=== PATIENT | male | born 1960 | race Caucasian/White ===

== ENCOUNTER 2016-08-16 03:17 | Inpatient (IN) ==
[2016-08-16] MEDS ORDERED: ASPIRIN 325 MG TABLET PO STA (03:39)
[2016-08-16] MEDS ORDERED: ALUM/MAG/SIMETH/LIDO VISC 1:1 30 ML BOTTLE PO STA (03:39)
[2016-08-16] MEDS ORDERED: ONDANSETRON 4 MG/2 ML VIAL IV STA (03:39)
[2016-08-16] MEDS ORDERED: SODIUM CHLORIDE 0.9% 500 ML IV STA (03:39)
[2016-08-16] MEDS ORDERED: METOPROLOL TARTRATE 25 MG TABLET PO STA (03:39)
[2016-08-16] MEDS ORDERED: NITROGLYCERIN 2% OINT 1 INCH/GM PACK TOP STA (03:39)
[2016-08-16 03:48] LABS: Basophils % 0.4 % (0.0-0.8); Eosinophils % 0.1 % (0.00-10.9); Hematocrit 38.7 VOL% (42.0-52.0); Hemoglobin 12.9 GM/DL (14.0-18.0); Immature Granulocytes % 0.5 %; Immature Granulocytes Absolute 0.05 #; Lymphocytes # 0.6 10*3/uL (1.4-4.0); Lymphocytes % 6.3 % (21.2-54.2); Mean Corpuscular HGB Conc 33.3 GM/DL (32-36); Mean Corpuscular Hemoglobin 31 PG (27-34); Mean Corpuscular Volume 93.3 FL (87-102); Mean Platelet Volume 9.9 FL (9.6-12.0); Monocytes # 0.6 10*3/uL (0.11-0.8); Monocytes % 6.4 % (1.7-12.7); Neutrophils # 8.4 10*3/uL (1.4-7.4); Neutrophils % 86.3 % (38.7-73.9); Platelet Count 92 10*3/uL (130-400); Red Blood Count 4.15 10*6/uL (3.8-5.5); Red Cell Distribution Width 16.7 % (9.3-17.3); White Blood Count 9.8 10*3/uL (4.5-13.71)
--- NOTE | 2016-08-16 03:49 | Emergency Department Note ---
I, Jenni Alcazar, am scribing for, and in the presence of, Dale Malloy MD 03:43. IMellissa Charles R, MD, personally performed the services described in this documentation, ascribed by Jenni Alcazar in my presence, and it is both accurate and complete 349 . Arrival - Arrival Chief Complaint: Chest Pain Stated Complaint: CP ED Nursing Triage Note: PT ARRIVES VIA EMS WITH COMPLAINTS OF CHEST PAIN THAT STARTED TONIGHT. PT STATES THAT HE HAS SOB, NAUSEA, DRY MOUTH, DULL PAIN IN THE CENTER OF HIS CHEST, FEELS HOT, AND CANT GET ENOUGH TO DRINK. PT ADMITS TO DRINKING 3 PINTS OF ALCOHOL TONIGHT. PT IS IN NO DISTRESS AT TIME OF TRIAGE. Mode of Arrival: Stretcher Limitations: No Limitations Source: Patient Time Seen by Provider: 08/16/16 03:27 - History of Present Illness HPI Narrative: Pt is a 56 y/o male that was brought to the ED via EMS with c/o chest pain that began hours [employer]. Pt states the chest pain came on during the day yesterday that hurts in the middle of his chest and radiates to his right shoulder. Pt reports he has not had alcohol in 2 days but admitted to triage that he drank 3 pints of alcohol tonight. Pt reports he has [place] and "can't stop shaking." When pt was told if he needed to be admitted he had to be transferred to [place] , [place], pt said that he could not go to [place] because "he would lose his place and he don't have anyone to take care of him." Pt has been seen multiple times by doctor for similar sxs. Pt does have a PMHx of CAD, HTN, alcohol abuse, and CO. No other complaints/pain in ED. Onset (ago): hour(s) Consistency: constant Severity: mild Severity scale (1-10): 2 Allergies/Adverse Reactions: Allergies Allergy/AdvReac Type Severity Reaction Status Date / Time Cephalosporins Allergy Intermediate RASH Verified 08/05/16 16:01 Penicillins Allergy Intermediate RASH Verified 08/05/16 16:01 Home Medications: Home Medications Medication Instructions Recorded Confirmed Type Clorazepate [Tranxene] 7.5 mg PO DAILY 11/16/14 08/16/16 History Metoprolol Succinate 100 mg PO DAILY 11/16/14 08/16/16 History traZODone [Desyrel] 150 mg PO BEDTIME 11/16/14 08/16/16 History Magnesium Chloride [Slow Mag] 64 mg PO BID #60 tablet 08/18/15 08/16/16 Rx Brimonidine Tartrate [Brimonidine 1 drop LEFT EYE TID 03/06/16 08/16/16 History 0.2% Oph Soln] Dorzolamide HCl/Timolol Maleat 1 drop LEFT EYE BID 03/06/16 08/16/16 History [Dorzolamide/Timolol Oph Soln] Aspirin Tab 325 mg PO DAILY 07/13/16 08/16/16 History Benzonatate 200 mg PO TID 07/13/16 08/16/16 History Krill/Om-3/Dha/Epa/Phospho/Ast 1 each PO DAILY 07/13/16 08/16/16 History [[place]-3 Krill Oil 300 mg Sfgl] Omeprazole 40 mg PO DAILY 07/13/16 08/16/16 History Ramipril 20 mg PO DAILY 07/13/16 08/16/16 History Ranitidine Tab [Zantac Tab] 150 mg PO DAILY 07/13/16 08/16/16 History Metoclopramide Tab [Reglan Tab] 5 mg PO ACHS #120 tablet 07/21/16 08/16/16 Rx Ranitidine Tab [Zantac Tab] 150 mg PO BID #60 tablet 07/21/16 08/16/16 Rx Review of System - Review of System 12 point system: reviewed and no additional remarkable complaints except as stated - Review of System Constitutional: Present: other (shaking all over). Absent: fever Respiratory: Absent: cough Cardiovascular: Present: chest pain Gastrointestinal: Absent: abdominal pain, nausea, vomiting Musculoskeletal: Present: other (radiating right shoulder pain from chest pain) Skin: Absent: rash Neurological: Absent: headache, weakness, numbness, confusion Psychiatric: Absent: anxiety Medical,Surgical,& Family Hx - Medical History Cardio: History of: CAD, Hypertension, [place] (STENTS X 3) Psychological: History of: Psychiatric/Substance Abuse Tx (ALCOHOL ABUSE) HEENT: History of: HEENT Problems (Pt states he is legally blind) Endocrine: History of: Dyslipidemia No history of: Diabetes Mellitus (NIDDM) Genitourinary: History of: Kidney Stones Gastrointestinal: History of: GERD - Surgical History Cardiac Surgeries: Sugical HX of: Cardiac Catheterization (STENTS X3) HEENT Surgeries: Surgical HX of: Eye Surgery (trevor eye surg) Orthopedic Surgeries: Surgical HX of;: Orthopedic Surgery (right rotator cuff surg) - Family History Family History: Reports;: Family Cancer (mom), Family Heart Disease, Family Hypertension Denies;: Family Anesthesia Reaction, Family Diabetes, Family Stroke - Social History Smoking Status: Current every day smoker Frequency of Alcohol Use: Frequently Type of Drug Use: None Exam Vital Signs: Vital Signs Temperature 98.9 F 08/16/16 03:22 Pulse Rate 119 H 08/16/16 03:22 Respiratory Rate 20 08/16/16 03:22 Blood Pressure 138/97 08/16/16 03:22 O2 Sat by Pulse Oximetry 96 08/16/16 03:22 - General General appearance: alert, in no apparent distress, other (reeks of alcohol) - Head Head exam: Present: atraumatic, normocephalic - ENT ENT exam: Present: mucous membranes moist. Absent: mucous membranes dry - Neck Neck exam: Present: full ROM. Absent: tenderness - Chest Chest inspection: Present: symmetric chest wall rise. Absent: tenderness - Respiratory Respiratory exam: Present: normal lung sounds bilaterally. Absent: respiratory distress - Cardiovascular Cardiovascular exam: Present: tachycardia, normal heart sounds - Abdominal Exam Abdominal exam: Present: soft. Absent: tenderness - Extremities Exam Extremities exam: Present: full ROM. Absent: tenderness - Back Exam Back exam: Present: full ROM. Absent: tenderness - Neurological Exam Neurological exam: Present: alert, oriented X3, CN II-XII intact. Absent: motor sensory deficit - Psychiatric Psychiatric exam: Present: normal affect, normal mood - Skin Skin exam: Present: warm, dry Course - Consultations Consultation #1: Dr. Avilez will admit patient Time: 04:34 Results - Labs CBC & BMP: 08/16/16 03:33 08/16/16 03:33 Lab Results: I have reviewed the patients labs Labs: Laboratory Tests 08/16/16 03:33 Hgb 12.9 L Hct 38.7 L Plt Count 92 L Neut % (Auto) 86.3 H Lymph % (Auto) 6.3 L Neut # (Auto) 8.4 H Lymph # (Auto) 0.6 L Laboratory Tests 08/16/16 03:33 Magnesium 1.5 L Laboratory Tests 08/16/16 03:33 Chloride 108 H Anion Gap 18.7 H Calcium 7.6 L AST 170 H ALT 104 H Alkaline Phosphatase 169 H Albumin 3.1 L Globulin 3.9 H Albumin/Globulin Ratio 0.7 L Critical Care Time Critical Care Time: Yes Total Critical Care Time: 60 Disposition Clinical Impression: Atypical chest pain, Alcohol dependency, Chest pain, Acute alcohol intoxication , Medical non-compliance, Hypomagnesemia, CAD (coronary artery disease), Hypertension, Left lower lobe pneumonia Case discussed with: patient Disposition: Still a Patient Condition: Stable Time of Disposition: 04:37
[2016-08-16 04:13] LABS: Magnesium 1.5 MG/DL (1.8-2.4)
[2016-08-16 04:18] LABS: Albumin 3.1 G/DL (3.4-5.0); Bilirubin,Total 0.7 MG/DL (0.2-1.0); Calcium 7.6 MG/DL (8.5-10.1); Osmolality,Calculated 285.7 MOS/KG (273-304); Potassium 3.7 MMOL/L (3.5-5.1)
[2016-08-16] MEDS ORDERED: MAGNESIUM SULF RIDER 2 GM in PREMIX 1 EACH IV STA (04:28)
[2016-08-16] MEDS ORDERED: LEVOFLOXACIN INJ 750 MG in PREMIX 1 EACH IV STA (04:30)
[2016-08-16] MEDS ORDERED: ALBUTEROL/IPRATROPIUM 3 ML NEB RESP TX STA (04:33)
[2016-08-16 04:56] LABS: Hypochromasia Slight
[2016-08-16 04:57] LABS: Macrocytosis 1+; Platelet Estimate Decreased
--- NOTE | 2016-08-16 04:57 | Hospitalist History & Physical ---
Assessment and Plan (1) Alcohol dependency Status: Chronic Current Visit: Yes (2) Chest pain Status: Chronic Current Visit: Yes (3) CAD (coronary artery disease) Status: Chronic Current Visit: Yes Qualifiers: Coronary Disease-Associated Artery/Lesion type: [place] artery (4) Hypertension Status: Chronic Current Visit: Yes (5) Dyslipidemia Status: Chronic Current Visit: No (6) Left lower lobe pneumonia Status: Acute Assessment and plan: Plan for this patient #1 admit the patient our service #2 repeat serial enzymes #3 IV antibiotics and breathing treatments #4 continue home meds as appropriate #5 DVT prophylaxis. Current Visit: Yes History of Present Illness Chief complaint: chest pain and shortness of breath History of present illness: Mr. Crowe is a 56 year old male with past medical history significant for coronary artery disease alcoholism hypertension and increased cholesterol who presents to our hospital via EMS with chest pain. Patient reports that it's in the center of his chest and radiates to his right shoulder. At one point he told someone here that he hadn't had alcohol in 3 days. Another person he told that he drank 3 pints of alcohol earlier today. He does report that he is an alcoholic. He says he is shaking a little bit. Patient has been seen in the hospital for multiple complaints of chest pain many times. This time patient feels warm and has a new infiltrate on chest x-ray I was consulted to admit him. Home Medications Medication Instructions Recorded Confirmed Type Clorazepate [Tranxene] 7.5 mg PO DAILY 11/16/14 08/16/16 History Metoprolol Succinate 100 mg PO DAILY 11/16/14 08/16/16 History traZODone [Desyrel] 150 mg PO BEDTIME 11/16/14 08/16/16 History Magnesium Chloride [Slow Mag] 64 mg PO BID #60 tablet 08/18/15 08/16/16 Rx Brimonidine Tartrate [Brimonidine 1 drop LEFT EYE TID 03/06/16 08/16/16 History 0.2% Oph Soln] Dorzolamide HCl/Timolol Maleat 1 drop LEFT EYE BID 03/06/16 08/16/16 History [Dorzolamide/Timolol Oph Soln] Aspirin Tab 325 mg PO DAILY 07/13/16 08/16/16 History Benzonatate 200 mg PO TID 07/13/16 08/16/16 History Krill/Om-3/Dha/Epa/Phospho/Ast 1 each PO DAILY 07/13/16 08/16/16 History [[place]-3 Krill Oil 300 mg Sfgl] Omeprazole 40 mg PO DAILY 07/13/16 08/16/16 History Ramipril 20 mg PO DAILY 07/13/16 08/16/16 History Ranitidine Tab [Zantac Tab] 150 mg PO DAILY 07/13/16 08/16/16 History Metoclopramide Tab [Reglan Tab] 5 mg PO ACHS #120 tablet 07/21/16 08/16/16 Rx Ranitidine Tab [Zantac Tab] 150 mg PO BID #60 tablet 07/21/16 08/16/16 Rx Allergies Allergy/AdvReac Type Severity Reaction Status Date / Time Cephalosporins Allergy Intermediate RASH Verified 08/05/16 16:01 Penicillins Allergy Intermediate RASH Verified 08/05/16 16:01 Medical,Surgical,& Family Hx - Medical History Cardio: History of: CAD, Hypertension, [place] (STENTS X 3) Psychological: History of: Psychiatric/Substance Abuse Tx (ALCOHOL ABUSE) HEENT: History of: HEENT Problems (Pt states he is legally blind) Endocrine: History of: Dyslipidemia No history of: Diabetes Mellitus (NIDDM) Genitourinary: History of: Kidney Stones Gastrointestinal: History of: GERD - Surgical History Cardiac Surgeries: Sugical HX of: Cardiac Catheterization (STENTS X3) HEENT Surgeries: Surgical HX of: Eye Surgery (trevor eye surg) Orthopedic Surgeries: Surgical HX of;: Orthopedic Surgery (right rotator cuff surg) - Family History Family History: Reports;: Family Cancer (mom), Family Heart Disease, Family Hypertension Denies;: Family Anesthesia Reaction, Family Diabetes, Family Stroke - Social History Smoking Status: Current every day smoker Frequency of Alcohol Use: Frequently Type of Drug Use: None 12 point system: reviewed and no additional remarkable complaints except as stated Exam - Constitutional Vitals: Period Temp Pulse Resp BP Sys/Christopher Pulse Ox Last 24 Hr 98.9 F 119 20 138/97 96 - General General appearance: alert, in no apparent distress, other (reeks of alcohol) - Head Head exam: Present: atraumatic, normocephalic - ENT ENT exam: Present: mucous membranes moist. Absent: mucous membranes dry - Neck Neck exam: Present: full ROM. Absent: tenderness - Chest Chest inspection: Present: symmetric chest wall rise. Absent: tenderness - Respiratory Respiratory exam: Present: normal lung sounds bilaterally. Absent: respiratory distress - Cardiovascular Cardiovascular exam: Present: tachycardia, normal heart sounds - Abdominal Exam Abdominal exam: Present: soft. Absent: tenderness - Extremities Exam Extremities exam: Present: full ROM. Absent: tenderness - Back Exam Back exam: Present: full ROM. Absent: tenderness - Neurological Exam Neurological exam: Present: alert, oriented X3, CN II-XII intact. Absent: motor sensory deficit - Psychiatric Psychiatric exam: Present: normal affect, normal mood - Skin Skin exam: Present: warm, dry Results - Labs CBC & BMP: 08/16/16 03:33 08/16/16 03:33
[2016-08-16] MEDS ORDERED: ONDANSETRON 4 MG/2 ML VIAL IV PRN (05:00)
[2016-08-16] MEDS ORDERED: ACETAMINOPHEN 325 MG TABLET PO PRN (05:00)
[2016-08-16] MEDS ORDERED: METOPROLOL TARTRATE 25 MG TABLET ONE (05:07)
[2016-08-16] MEDS ORDERED: LEVOFLOXACIN INJ 150 ML IV ONE (05:07)
[2016-08-16] MEDS ORDERED: ONDANSETRON 4 MG/2 ML VIAL ONE (05:07)
[2016-08-16] MEDS ORDERED: ASPIRIN 325 MG TABLET ONE (05:07)
[2016-08-16] MEDS ORDERED: NITROGLYCERIN 2% OINT 1 INCH/GM PACK TOP ONE (05:07)
[2016-08-16] MEDS ORDERED: ALUM/MAG/SIMETH/LIDO VISC 1:1 30 ML BOTTLE PO ONE (05:08)
[2016-08-16] MEDS ORDERED: MAGNESIUM SULF RIDER 50 ML IV ONE (05:08)
[2016-08-16 05:48] LABS: Apearance,Urine CLEAR (Clear); Bilirubin,Urine Negative (Negative); Blood, Urine Negative (Negative); Glucose,Urine (UA) Negative (Negative); Ketones,Urine 5 mg/dL (Negative); Mucus,Urine Occasional /LPF (Occasional); Nitrite,Urine Negative (Negative); Protein,Urine Negative; RBC,Urine 2 /HPF (0-4); Squamous Epithelial Cell,Urine Occasional /HPF (0-10); Urine Color Yellow (Yellow); Urine Specific Gravity 1.014 (1.001-1.035); Urine Urobilinogen < 2.0 EU/DL (0.2-1.0); WBC,Urine 1 /HPF (0-6)
[2016-08-16 05:57] LABS: Barbiturates Screen,Urine Negative (Negative); Benzodiazepines Screen,Urine Negative (Negative); Cannabinoid Screen,Urine Negative (Negative); Opiate Screen,Urine Negative (Negative); Phencyclidine Screen,Urine Negative (Negative)
--- NOTE | 2016-08-16 06:58 | XRay Report ---
XR chest 1V portable Indication: Chest pain. Chest one view: Comparison 07/28/16. Patchy infiltrate is developed at the left lung base superimposed on diffuse interstitial prominence of the lungs. Heart size and mediastinal contour are within normal limits. Impression: Left basilar pneumonia. PROCEDURE INTERPRETED AT [facility] DEPARTMENT OF RADIOLOGY Final Report Signed by: Dante Mckenna M.D.
[2016-08-16] MEDS: LEVALBUTEROL 1.25 MG/3 ML NEB RESP TX SCH ×3 (08:15→21:11)
--- NOTE | 2016-08-16 08:52 | EKG Report ---
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
[2016-08-16] MEDS ORDERED: CLORAZEPATE 7.5 MG TABLET ONE (09:17)
[2016-08-16] MEDS ORDERED: PANTOPRAZOLE 40 MG TABLET PO ONE (09:17)
[2016-08-16] MEDS ORDERED: FAMOTIDINE 20 MG TABLET ONE (09:17)
[2016-08-16] MEDS ORDERED: MAGNESIUM CHLORIDE 64 MG TABLET PO ONE (09:17)
[2016-08-16] MEDS ORDERED: BENZONATATE 100 MG CAPSULE PO ONE (09:18)
[2016-08-16] MEDS: PANTOPRAZOLE 40 MG TABLET PO SCH (09:21)
[2016-08-16] MEDS: MAGNESIUM CHLORIDE 64 MG TABLET PO SCH ×2 (09:21→21:03)
[2016-08-16] MEDS: CLORAZEPATE 7.5 MG TABLET PO SCH (09:21)
[2016-08-16] MEDS: FAMOTIDINE 20 MG TABLET PO SCH ×2 (09:22→21:04)
[2016-08-16] MEDS: BENZONATATE 100 MG CAPSULE PO SCH ×3 (09:22→21:04)
[2016-08-16] MEDS: METOPROLOL SUCCINATE XL 100 MG TABLET PO SCH (09:23)
[2016-08-16] MEDS: THIAMINE 100 MG TABLET PO SCH (09:23)
[2016-08-16] MEDS: FOLIC ACID 1 MG TABLET PO SCH (09:24)
[2016-08-16] MEDS: METOCLOPRAMIDE 5 MG TABLET PO SCH ×4 (09:24→21:03)
[2016-08-16] MEDS: RAMIPRIL 5 MG CAPSULE PO SCH (09:25)
[2016-08-16] MEDS: MULTIVITAMIN (CENTRUM) TABLET PO SCH (09:25)
[2016-08-16] MEDS: DORZOLAMIDE/TIMOLOL OPH SOLN 10 ML BOTTLE LEFT EYE SCH ×2 (09:26→21:04)
[2016-08-16] MEDS: BRIMONIDINE 0.2% OPH SOLN 5 ML BOTTLE LEFT EYE SCH ×3 (09:26→21:04)
[2016-08-16] MEDS: ASPIRIN 325 MG TABLET PO SCH (09:30)
--- NOTE | 2016-08-16 10:08 | EKG Report ---
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
[2016-08-16 10:59] LABS: Troponin I Only 0.015 NG/ML (0.00-0.045)
--- NOTE | 2016-08-16 18:21 | Hospitalist Progress Note ---
Assessment and Plan - Time spent with patient Time spent with patient: Greater than 30 minutes (1) Left lower lobe pneumonia Status: Acute Assessment and plan: Continue current management. Current Visit: Yes (2) Chest pain Status: Chronic Assessment and plan: Serially negative troponins. Will consult Cardiology. Current Visit: Yes (3) CAD (coronary artery disease) Status: Chronic Current Visit: Yes Qualifiers: Coronary Disease-Associated Artery/Lesion type: [place] artery (4) Hypertension Status: Chronic Assessment and plan: Continue current management. Current Visit: Yes (5) Dyslipidemia Status: Chronic Assessment and plan: Continue current medications. Current Visit: No (6) Alcohol dependency Status: Chronic Assessment and plan: Discontinue vodka, continue ativan. Current Visit: Yes Hospitalist: Subjective Interval history: No complaints, no overnight events. Exam - Constitutional Vitals: Period Temp Pulse Resp BP Sys/Christopher Pulse Ox Last 24 Hr 97.2 F-98.4 F 62-104 16-24 106-148/66-88 94-100 General appearance: no acute distress - Head Head exam: Present: normocephalic, atraumatic - Eye Eye exam: Present: EOMI Pupils: Present: JAIME - ENT ENT exam: Present: normal exam - Neck Neck exam: Present: normal inspection - Respiratory Respiratory exam: Present: clear to auscultation bilaterally. Absent: rhonchi, wheezes - Cardiovascular Cardiovascular exam: Present: regular rate and rhythm. Absent: gallop, rubs, systolic murmur - GI/Abdominal GI/Abdominal exam: Present: normal bowel sounds, soft. Absent: distended, firm , guarding, tenderness, rebound - Extremities Exam Extremities exam: Present: normal inspection. Absent: calf tenderness, edema Results - Labs CBC & BMP: 08/16/16 03:33 08/16/16 03:33 Lab Results: I have reviewed the past 24 hour labs
[2016-08-16] MEDS: LORazepam 2 MG/1 ML VIAL IV PRN (21:06)
[2016-08-17] MEDS: LEVALBUTEROL 1.25 MG/3 ML NEB RESP TX SCH ×4 (01:46→19:46)
[2016-08-17 05:09] LABS: Basophils % 0.5 % (0.0-0.8); Eosinophils # 0.1 10*3/uL (0.0-0.87); Eosinophils % 0.9 % (0.00-10.9); Hematocrit 40.4 VOL% (42.0-52.0); Immature Granulocytes % 0.4 %; Immature Granulocytes Absolute 0.02 #; Lymphocytes # 1.6 10*3/uL (1.4-4.0); Lymphocytes % 28.6 % (21.2-54.2); Mean Corpuscular HGB Conc 32.2 GM/DL (32-36); Mean Corpuscular Hemoglobin 31 PG (27-34); Mean Corpuscular Volume 94.8 FL (87-102); Mean Platelet Volume 10.7 FL (9.6-12.0); Monocytes # 0.5 10*3/uL (0.11-0.8); Monocytes % 9.2 % (1.7-12.7); Neutrophils # 3.4 10*3/uL (1.4-7.4); Neutrophils % 60.4 % (38.7-73.9); Red Blood Count 4.26 10*6/uL (3.8-5.5); Red Cell Distribution Width 16.2 % (9.3-17.3); White Blood Count 5.6 10*3/uL (4.5-13.71)
[2016-08-17 05:34] LABS: Platelet Count 81 10*3/uL (130-400)
[2016-08-17 05:51] LABS: Calcium 8.4 MG/DL (8.5-10.1); Osmolality,Calculated 283.1 MOS/KG (273-304); Potassium 4.1 MMOL/L (3.5-5.1)
[2016-08-17] MEDS: LEVOFLOXACIN INJ 750 MG in PREMIX 1 EACH IV SCH (06:32)
[2016-08-17 06:36] LABS: Platelet Estimate Decreased
[2016-08-17] MEDS: VANCOMYCIN INJ 1,000 MG in SODIUM CHLORIDE 0.9% 250 ML IV SCH ×2 (09:17→21:36)
[2016-08-17] MEDS: MULTIVITAMIN (CENTRUM) TABLET PO SCH (09:20)
[2016-08-17] MEDS: METOCLOPRAMIDE 5 MG TABLET PO SCH ×4 (09:20→21:37)
[2016-08-17] MEDS: FAMOTIDINE 20 MG TABLET PO SCH ×2 (09:20→21:37)
[2016-08-17] MEDS: CLORAZEPATE 7.5 MG TABLET PO SCH (09:20)
[2016-08-17] MEDS: THIAMINE 100 MG TABLET PO SCH (09:20)
[2016-08-17] MEDS: METOPROLOL SUCCINATE XL 100 MG TABLET PO SCH (09:21)
[2016-08-17] MEDS: MAGNESIUM CHLORIDE 64 MG TABLET PO SCH ×2 (09:21→21:37)
[2016-08-17] MEDS: FOLIC ACID 1 MG TABLET PO SCH (09:21)
[2016-08-17] MEDS: BENZONATATE 100 MG CAPSULE PO SCH ×3 (09:21→21:37)
[2016-08-17] MEDS: PANTOPRAZOLE 40 MG TABLET PO SCH (09:21)
[2016-08-17] MEDS: ASPIRIN 325 MG TABLET PO SCH (09:21)
[2016-08-17] MEDS: OMEGA 3 ACID ETHYL ESTERS 1 GM CAPSULE PO SCH (09:22)
[2016-08-17] MEDS: DORZOLAMIDE/TIMOLOL OPH SOLN 10 ML BOTTLE LEFT EYE SCH ×2 (09:23→22:52)
[2016-08-17] MEDS: BRIMONIDINE 0.2% OPH SOLN 5 ML BOTTLE LEFT EYE SCH ×3 (09:24→22:51)
[2016-08-17] MEDS: RAMIPRIL 5 MG CAPSULE PO SCH (09:30)
--- NOTE | 2016-08-17 12:34 | Cardiology Consult Note ---
I, Anita Hoff RN, am scribing for, and in the presence of, Abhi Luu MD 12:31. Assessment and Plan - Time spent with patient Time spent with patient: Greater than 30 minutes (1) CAD (coronary artery disease) Status: Chronic Assessment and plan: The patient tells me he had chest pain, but he told my nurse he did not. He described in fairly good detail but he also describes is different from his pain he had prior to his previous 3 stents. It could be an atypical presentation of coronary disease, GI, or muscle skeletal related. Cardiac isoenzymes were negative. Plan/ recommendation : Agree with treatment of his pneumonia. I will have him take as needed sublingual TNG. I will review his medicines and adjust as needed. From my standpoint, whenever you are ready for him to go home he can go home. He does not need a heart cath at this time and he declines it, too. However, he probably should have a treadmill with Cardiolite, outpatient, at sometime in the future. Our nurse will set that up to be done with Dr. Hardy alvarez I discussed with the patient the benefits of stopping tobacco/nicotine, the problems with continuing to use it, and options of treatment. The patient is considering this option. Thank you for allowing me to participate in this patient's care Current Visit: No Qualifiers: Coronary Disease-Associated Artery/Lesion type: [place] artery (2) Hypomagnesemia Status: Acute Current Visit: Yes (3) Hypertension Status: Chronic Current Visit: Yes (4) Dyslipidemia Status: Chronic Current Visit: No (5) Atypical chest pain Status: Acute Current Visit: Yes (6) Left lower lobe pneumonia Status: Acute Current Visit: Yes (7) Alcohol dependency Status: Chronic Current Visit: Yes History of Present Illness - Data of Consult Patient: known to practice within the last 3 years Consult date: 08/17/16 Requesting Physician: Gertrude Pathak - Consult Narrative Reason for consult: chest pain History of present illness: Mr. Crowe is a 56 year old white male who is followed by Dr. Joy with a history of CAD, HTN, dyslipidemia, alcohol dependency, kidney stones, and GERD. He states he is legally blind. Surgical history includes tonsillectomy, bilateral eye surgeries, right rotator cuff, and lithotriposy. He has had several heart caths, the most recent being 8/21/14 with the following findings: left main coronary artery is widely patent without stenosis. the ramus intermedius is widely patent without stenosis. the circumfles artery is widely patent without stenosis. the left anterior descending artery has a proximal to mid stent that is patent with a 30% or less stenosis. VENKAT 3 flow is present. Right coronary is widely patent without stenosis. Family present includes father with CAD and CVA and mother with cancer. Patient reports he is an everyday smoker and that he binge drinks, saying he has had any alcohol in 2-3 weeks. He reports he came to the hospital for evaluation because he felt bad and had developed a productive cough with green phlegm. He was told he has pneumonia. We are asked to see the patient for chest pain. He denies having any chest pain or shortness of breath while in hospital or before he was admitted. He reports having some right shoulder blade pain at times, but states he always has this and it never coincided with him having blockages. Currently he is pain free. He is in sinus rhythm with heart rates in the 70's. Troponins have been negative x 2. Potassium is 4.1 and BUN and creatinine 17 and 1.0. Magnesium was 1.5 yesterday. He takes 64mg bid as a home med and he was given IV magnesium yesterday. He reports he no longer takes Plavix. 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 He says Dr. Joy told him he could stop it about a year ago, and now he takes Aspirin 325mg dly. CC: Gertrude Pathak MD - Home Medications and Allergies Home Medications: Home Medications Medication Instructions Recorded Confirmed Type Clorazepate [Tranxene] 7.5 mg PO DAILY 11/16/14 08/16/16 History Metoprolol Succinate 100 mg PO DAILY 11/16/14 08/16/16 History traZODone [Desyrel] 150 mg PO BEDTIME 11/16/14 08/16/16 History Magnesium Chloride [Slow Mag] 64 mg PO BID #60 tablet 08/18/15 08/16/16 Rx Brimonidine Tartrate [Brimonidine 1 drop LEFT EYE TID 03/06/16 08/16/16 History 0.2% Oph Soln] Dorzolamide HCl/Timolol Maleat 1 drop LEFT EYE BID 03/06/16 08/16/16 History [Dorzolamide/Timolol Oph Soln] Aspirin Tab 325 mg PO DAILY 07/13/16 08/16/16 History Benzonatate 200 mg PO TID 07/13/16 08/16/16 History Krill/Om-3/Dha/Epa/Phospho/Ast 1 each PO DAILY 07/13/16 08/16/16 History [[place]-3 Krill Oil 300 mg Sfgl] Omeprazole 40 mg PO DAILY 07/13/16 08/16/16 History Ramipril 20 mg PO DAILY 07/13/16 08/16/16 History Ranitidine Tab [Zantac Tab] 150 mg PO DAILY 07/13/16 08/16/16 History Metoclopramide Tab [Reglan Tab] 5 mg PO ACHS #120 tablet 07/21/16 08/16/16 Rx Ranitidine Tab [Zantac Tab] 150 mg PO BID #60 tablet 07/21/16 08/16/16 Rx Allergies/Adverse Reactions: Allergies Allergy/AdvReac Type Severity Reaction Status Date / Time Cephalosporins Allergy Intermediate RASH Verified 08/05/16 16:01 Penicillins Allergy Intermediate RASH Verified 08/05/16 16:01 - Constitutional Constitutional: Present: as per HPI - EENT Eyes: Present: loss of vision (legally blind) Ears: Absent: decreased hearing, ear pain, tinnitus Nose, mouth and throat: Absent: epistaxis, headache(s), neck pain, sore throat - Cardiovascular Cardiovascular: Absent: chest pain at rest, chest pain with activity, diaphoresis, dyspnea, dyspnea on exertion, edema, radiating jaw, neck or arm pain, lightheadedness, palpitations - Respiratory Respiratory: Present: cough (productive with green phlegm). Absent: hemoptysis , dyspnea on exertion - Gastrointestinal Gastrointestinal: Absent: abdominal pain, constipation, diarrhea, hematemesis, hematochezia, nausea, vomiting - Genitourinary Genitourinary: Absent: difficulty urinating, dysuria, flank pain, hematuria - Neurological Neurological: Absent: abnormal gait, abnormal speech, confusion, dizziness, frequent falls, headache(s), syncope - Psychiatric Psychiatric: Absent: anxiety, confusion - Endocrine Endocrine: Present: fatigue. Absent: cold intolerance - Hematologic/Lymphatic Hematologic/Lymphatic: Absent: easy bleeding, easy bruising Medical,Surgical,& Family Hx - Medical History Cardio: History of: CAD, Hypertension, [place] Psychological: History of: Psychiatric/Substance Abuse Tx (ALCOHOL ABUSE) HEENT: History of: HEENT Problems (Pt states he is legally blind) Endocrine: History of: Dyslipidemia Genitourinary: History of: Kidney Stones Gastrointestinal: History of: GERD - Surgical History Cardiac Surgeries: Sugical HX of: Cardiac Catheterization (most recent 02/2014) Thoracic Surgeries: Surgical HX of;: Lithotripsy HEENT Surgeries: Surgical HX of: Eye Surgery (trevor eye surg) Orthopedic Surgeries: Surgical HX of;: Orthopedic Surgery (right rotator cuff surg) - Family History Family History: Reports;: Family Cancer (mother), Family Heart Disease (father) , Family Stroke (father) - Social History Smoking Status: Current every day smoker Have you smoked in the last 12 months: Yes Frequency of Alcohol Use: Frequently Type of Drug Use: None Lives With:: Alone Functional capacity: uses cane/walker Physical Examination Vital Signs Temp Pulse Resp BP Pulse Ox 98.9 F 119 H 20 138/97 96 08/16/16 03:22 08/16/16 03:22 08/16/16 03:22 08/16/16 03:22 08/16/16 03:22 General: Present: Appears Well, No Apparent Distress HEENT: Present: Mucus Membranes Moist Neck: Present: Supple Neck, Midline Trachea, No JVD/HJR Cardiac: Present: Reg Rate and Rhythm Lungs: Present: Normal Breath Sounds. Absent: Oxygen Neuro: Absent: Essential Tremor Abdomen: Present: Soft, Active Bowel Sounds, Non-Tender. Absent: Distended Skin: Present: Other (warts on bottom of both feet, he sees someone at the foot clinic) Musculoskeletal: Present: No Pain, Normal Range of Motion Gait: Present: Normal Gait Extremities: Present: Normal Gait, No Edema, Normal Upper Extr. Pulses. Absent : Normal Lower Extr. Pulses (weak bilaterally) Other: No chest wall tenderness with pressing on, particularly the area where he had the pain Result/EKG - Labs CBC & BMP: 08/17/16 04:36 08/17/16 04:36 Lab Results: I have reviewed the past 24 hour labs Labs: Laboratory Results - last 24 hr 08/16/16 08/16/1617 09:00 13:11 04:36 WBC 5.6 D RBC 4.26 Hgb 13.0 L Hct 40.4 L MCV 94.8 MCH 31 MCHC 32.2 RDW 16.2 Plt Count 81 L MPV 10.7 Neut % (Auto) 60.4 Lymph % (Auto) 28.6 [place] % (Auto) 9.2 Eos % (Auto) 0.9 Baso % (Auto) 0.5 Neut # (Auto) 3.4 Lymph # (Auto) 1.6 [place] # (Auto) 0.5 Eos # (Auto) 0.1 Baso # (Auto) 0.0 Immature Gran % 0.4 Nucleated RBC % 0.0 Immature Gran # 0.02 Nucleated RBCs # 0.00 Platelet Estimate Decreased Anisocytosis Sodium Potassium Chloride Carbon Dioxide Anion Gap BUN Creatinine GFR Calculation BUN/Creatinine Ratio Glucose POC Glucose 84 Calculated Osmolality Calcium Total Creatine Kinase 111 CK-MB (CK-2) 1.1 Troponin I 0.015 08/17/16 04:36 WBC RBC Hgb Hct MCV MCH MCHC RDW Plt Count MPV Neut % (Auto) Lymph % (Auto) [place] % (Auto) Eos % (Auto) Baso % (Auto) Neut # (Auto) Lymph # (Auto) [place] # (Auto) Eos # (Auto) Baso # (Auto) Immature Gran % Nucleated RBC % Immature Gran # Nucleated RBCs # Platelet Estimate Anisocytosis Sodium 142 Potassium 4.1 Chloride 106 Carbon Dioxide 26 Anion Gap 14.1 BUN 17 Creatinine 1.00 GFR Calculation 86 BUN/Creatinine Ratio 17.00 Glucose 81 POC Glucose Calculated Osmolality 283.1 Calcium 8.4 L Total Creatine Kinase CK-MB (CK-2) Troponin I - EKG EKG results: interpreted by me EKG shows: sinus rhythm Quality Measures - VTE Deep Vein Thrombosis/Pulmonary Embolism Present on Admission: No Specialty Discharge - Follow Up or Referrals Follow up with: Myles Joy MD [Physician] - 08/24/16 2:50 pm (go to office on August 23 for stress Test. Do not eat anything after 0700 AM, NO caffiene.) I, Abhi Luu MD, personally performed the services described in this documentation, ascribed by Anita Hoff RN in my presence, and it is both accurate and complete 232 .
--- NOTE | 2016-08-17 15:23 | Hospitalist Progress Note ---
Assessment and Plan (1) Left lower lobe pneumonia Status: Acute Assessment and plan: Continue current management. Current Visit: Yes (2) Chest pain Status: Chronic Assessment and plan: Serially negative troponins. Will consult Cardiology. Current Visit: Yes (3) CAD (coronary artery disease) Status: Chronic Current Visit: No Qualifiers: Coronary Disease-Associated Artery/Lesion type: [place] artery (4) Hypertension Status: Chronic Assessment and plan: Continue current management. Current Visit: Yes (5) Dyslipidemia Status: Chronic Assessment and plan: Continue current medications. Current Visit: No (6) Alcohol dependency Status: Chronic Assessment and plan: Discontinue vodka, continue ativan. Current Visit: Yes Hospitalist: Subjective Interval history: No overnight events. Patient was missing the whole day, and apparently was smoking outside. He complains of a cough. I instructed him to stop smoking. Exam - Constitutional Vitals: Period Temp Pulse Resp BP Sys/Christopher Pulse Ox Last 24 Hr 98.0 F-98.5 F 60-81 18-20 100-116/56-77 91-100 General appearance: no acute distress - Head Head exam: Present: normocephalic, atraumatic - Eye Eye exam: Present: EOMI Pupils: Present: JAIME - ENT ENT exam: Present: normal exam - Neck Neck exam: Present: normal inspection - Respiratory Respiratory exam: Present: clear to auscultation bilaterally. Absent: rhonchi, wheezes - Cardiovascular Cardiovascular exam: Present: regular rate and rhythm. Absent: gallop, rubs, systolic murmur - GI/Abdominal GI/Abdominal exam: Present: normal bowel sounds, soft. Absent: distended, firm , guarding, tenderness, rebound - Extremities Exam Extremities exam: Present: normal inspection. Absent: calf tenderness, edema Results - Labs CBC & BMP: 08/17/16 04:36 08/17/16 04:36 Lab Results: I have reviewed the past 24 hour labs Quality Measures - VTE Deep Vein Thrombosis/Pulmonary Embolism Present on Admission: No Specialty Discharge - Follow Up or Referrals Follow up with: Myles Joy MD [Physician] - 08/24/16 2:50 pm (go to office on August 23 for stress Test. Do not eat anything after 0700 AM, NO caffiene.)
[2016-08-17] MEDS: LORazepam 2 MG/1 ML VIAL IV PRN (17:42)
[2016-08-18] MEDS: LEVALBUTEROL 1.25 MG/3 ML NEB RESP TX SCH ×4 (00:58→18:18)
[2016-08-18] MEDS: LORazepam 2 MG/1 ML VIAL IV PRN ×5 (01:03→18:55)
[2016-08-18] MEDS: METOCLOPRAMIDE 5 MG TABLET PO SCH ×4 (06:31→21:10)
[2016-08-18 06:45] LABS: Basophils % 0.4 % (0.0-0.8); Eosinophils # 0.2 10*3/uL (0.0-0.87); Hematocrit 37.1 VOL% (42.0-52.0); Hemoglobin 12.2 GM/DL (14.0-18.0); Immature Granulocytes % 0.2 %; Immature Granulocytes Absolute 0.02 #; Lymphocytes # 1.7 10*3/uL (1.4-4.0); Mean Corpuscular HGB Conc 32.9 GM/DL (32-36); Mean Corpuscular Hemoglobin 30 PG (27-34); Mean Corpuscular Volume 92.3 FL (87-102); Mean Platelet Volume 11.6 FL (9.6-12.0); Monocytes # 0.7 10*3/uL (0.11-0.8); Monocytes % 8.1 % (1.7-12.7); Neutrophils # 5.5 10*3/uL (1.4-7.4); Neutrophils % 68.3 % (38.7-73.9); Platelet Count 99 10*3/uL (130-400); Red Blood Count 4.02 10*6/uL (3.8-5.5); Red Cell Distribution Width 16.1 % (9.3-17.3)
[2016-08-18 07:13] LABS: Elliptocytes Few; Hypochromasia 1+; Platelet Estimate Decreased
[2016-08-18 07:17] LABS: Calcium 8.4 MG/DL (8.5-10.1); Osmolality,Calculated 287.8 MOS/KG (273-304); Potassium 3.8 MMOL/L (3.5-5.1)
[2016-08-18] MEDS: DORZOLAMIDE/TIMOLOL OPH SOLN 10 ML BOTTLE LEFT EYE SCH ×2 (09:19→21:10)
[2016-08-18] MEDS: BRIMONIDINE 0.2% OPH SOLN 5 ML BOTTLE LEFT EYE SCH ×3 (09:19→21:09)
[2016-08-18] MEDS: METOPROLOL SUCCINATE XL 100 MG TABLET PO SCH (09:20)
[2016-08-18] MEDS: OMEGA 3 ACID ETHYL ESTERS 1 GM CAPSULE PO SCH (09:20)
[2016-08-18] MEDS: THIAMINE 100 MG TABLET PO SCH (09:20)
[2016-08-18] MEDS: BENZONATATE 100 MG CAPSULE PO SCH ×3 (09:20→21:11)
[2016-08-18] MEDS: CLORAZEPATE 7.5 MG TABLET PO SCH (09:20)
[2016-08-18] MEDS: PANTOPRAZOLE 40 MG TABLET PO SCH (09:21)
[2016-08-18] MEDS: FOLIC ACID 1 MG TABLET PO SCH (09:21)
[2016-08-18] MEDS: MULTIVITAMIN (CENTRUM) TABLET PO SCH (09:21)
[2016-08-18] MEDS: ASPIRIN 325 MG TABLET PO SCH (09:21)
[2016-08-18] MEDS: FAMOTIDINE 20 MG TABLET PO SCH ×2 (09:21→21:10)
[2016-08-18] MEDS: MAGNESIUM CHLORIDE 64 MG TABLET PO SCH ×2 (09:21→21:11)
[2016-08-18] MEDS: RAMIPRIL 5 MG CAPSULE PO SCH (09:29)
[2016-08-18] MEDS: VANCOMYCIN INJ 1,000 MG in SODIUM CHLORIDE 0.9% 250 ML IV SCH ×2 (10:35→21:19)
--- NOTE | 2016-08-18 11:07 | Hospitalist Progress Note ---
Assessment and Plan - Time spent with patient Time spent with patient: Greater than 30 minutes (1) Left lower lobe pneumonia Status: Acute Assessment and plan: Continue current management. Current Visit: Yes (2) Chest pain Status: Chronic Assessment and plan: Serially negative troponins. Appreciate cardiology's assistance. Current Visit: Yes (3) CAD (coronary artery disease) Status: Chronic Current Visit: No Qualifiers: Coronary Disease-Associated Artery/Lesion type: [place] artery (4) Hypertension Status: Chronic Assessment and plan: Continue current management. Current Visit: Yes (5) Dyslipidemia Status: Chronic Assessment and plan: Continue current medications. Current Visit: No (6) Alcohol dependency Status: Chronic Assessment and plan: Continue ativan. Current Visit: Yes (7) Positive blood culture Status: Acute Assessment and plan: We'll continue current management await final cultures will obtain a repeat blood culture. Current Visit: Yes Hospitalist: Subjective Interval history: Called down to the Micro lab, it appears he has positive blood cultures for coag negative staph in addition to group B strep. Exam - Constitutional Vitals: Period Temp Pulse Resp BP Sys/Christopher Pulse Ox Last 24 Hr 97.1 F-98.4 F 60-108 18-20 113-127/59-77 91-100 General appearance: no acute distress - Head Head exam: Present: normocephalic, atraumatic - Eye Eye exam: Present: EOMI Pupils: Present: JAIME - ENT ENT exam: Present: normal exam - Neck Neck exam: Present: normal inspection - Respiratory Respiratory exam: Present: clear to auscultation bilaterally. Absent: rhonchi, wheezes - Cardiovascular Cardiovascular exam: Present: regular rate and rhythm. Absent: gallop, rubs, systolic murmur - GI/Abdominal GI/Abdominal exam: Present: normal bowel sounds, soft. Absent: distended, firm , guarding, tenderness, rebound - Extremities Exam Extremities exam: Present: normal inspection. Absent: calf tenderness, edema Results - Labs CBC & BMP: 08/18/16 06:27 08/18/16 06:27 Lab Results: I have reviewed the past 24 hour labs Quality Measures - VTE Deep Vein Thrombosis/Pulmonary Embolism Present on Admission: No Specialty Discharge - Follow Up or Referrals Follow up with: Myles Joy MD [Physician] - 08/24/16 2:50 pm (go to office on August 23 for stress Test. Do not eat anything after 0700 AM, NO caffiene.)
[2016-08-18] MEDS: LEVOFLOXACIN INJ 750 MG in PREMIX 1 EACH IV SCH (12:48)
[2016-08-18] MEDS: NICOTINE 21 MG/24 HR PATCH TRANSDERM SCH (16:15)
[2016-08-19] MEDS: LORazepam 2 MG/1 ML VIAL IV PRN ×7 (00:16→20:58)
[2016-08-19] MEDS: LEVALBUTEROL 1.25 MG/3 ML NEB RESP TX SCH ×4 (01:18→21:15)
[2016-08-19] MEDS: ZIPRASIDONE 20 MG/1 ML VIAL IM PRN ×3 (07:30→18:06)
[2016-08-19] MEDS: BRIMONIDINE 0.2% OPH SOLN 5 ML BOTTLE LEFT EYE SCH ×3 (08:32→21:00)
[2016-08-19] MEDS: MULTIVITAMIN (CENTRUM) TABLET PO SCH (08:32)
[2016-08-19] MEDS: METOCLOPRAMIDE 5 MG TABLET PO SCH ×4 (08:32→20:59)
[2016-08-19] MEDS: DORZOLAMIDE/TIMOLOL OPH SOLN 10 ML BOTTLE LEFT EYE SCH ×2 (08:32→21:00)
[2016-08-19] MEDS: PANTOPRAZOLE 40 MG TABLET PO SCH (08:33)
[2016-08-19] MEDS: BENZONATATE 100 MG CAPSULE PO SCH ×3 (08:33→20:59)
[2016-08-19] MEDS: FAMOTIDINE 20 MG TABLET PO SCH ×2 (08:33→21:00)
[2016-08-19] MEDS: OMEGA 3 ACID ETHYL ESTERS 1 GM CAPSULE PO SCH (08:33)
[2016-08-19] MEDS: THIAMINE 100 MG TABLET PO SCH (08:33)
[2016-08-19] MEDS: FOLIC ACID 1 MG TABLET PO SCH (08:33)
[2016-08-19] MEDS: NICOTINE 21 MG/24 HR PATCH TRANSDERM SCH (08:33)
[2016-08-19] MEDS: MAGNESIUM CHLORIDE 64 MG TABLET PO SCH ×2 (08:33→20:59)
[2016-08-19] MEDS: VANCOMYCIN INJ 1,000 MG in SODIUM CHLORIDE 0.9% 250 ML IV SCH ×2 (08:33→20:59)
[2016-08-19] MEDS: CLORAZEPATE 7.5 MG TABLET PO SCH (08:33)
[2016-08-19] MEDS: RAMIPRIL 5 MG CAPSULE PO SCH (08:57)
[2016-08-19] MEDS: METOPROLOL SUCCINATE XL 100 MG TABLET PO SCH (08:58)
[2016-08-19] MEDS: ASPIRIN 325 MG TABLET PO SCH (08:58)
[2016-08-19] MEDS: LEVOFLOXACIN INJ 750 MG in PREMIX 1 EACH IV SCH (09:19)
[2016-08-19] MEDS ORDERED: hydrALAZINE 20 MG/1 ML VIAL IV PRN (09:20)
--- NOTE | 2016-08-19 12:36 | Hospitalist Progress Note ---
Assessment and Plan - Time spent with patient Time spent with patient: Greater than 30 minutes (1) Acute encephalopathy Status: Acute Assessment and plan: Patient is somewhat disoriented and agitated. He was transferred to the ICU for one on one care. Current Visit: Yes (2) Left lower lobe pneumonia Status: Acute Assessment and plan: Continue current management. Current Visit: Yes (3) Chest pain Status: Chronic Assessment and plan: Serially negative troponins. Appreciate cardiology's assistance. Current Visit: Yes (4) CAD (coronary artery disease) Status: Chronic Assessment and plan: Stable. Current Visit: No Qualifiers: Coronary Disease-Associated Artery/Lesion type: [place] artery (5) Hypertension Status: Chronic Assessment and plan: Continue current management. PRN hydralazine Current Visit: Yes (6) Dyslipidemia Status: Chronic Assessment and plan: Continue current medications. Current Visit: No (7) Alcohol dependency Status: Chronic Assessment and plan: Continue ativan. Current Visit: Yes (8) Positive blood culture Status: Acute Assessment and plan: Streptococcus, continue levquin. Blood cultures repeated. Current Visit: Yes Hospitalist: Subjective Interval history: No complaints currently. He was transferred to the ICU for closer observation due to confusion yesterday and an attempt to leave the hospital AMA. Exam - Constitutional Vitals: Period Temp Pulse Resp BP Sys/Christopher Pulse Ox Last 24 Hr 97.2 F-98 F 53-76 10-26 94-173/56-109 91-100 General appearance: no acute distress - Head Head exam: Present: normocephalic, atraumatic - Eye Eye exam: Present: EOMI Pupils: Present: JAIME - ENT ENT exam: Present: normal exam - Neck Neck exam: Present: normal inspection - Respiratory Respiratory exam: Present: clear to auscultation bilaterally. Absent: rhonchi, wheezes - Cardiovascular Cardiovascular exam: Present: regular rate and rhythm. Absent: gallop, rubs, systolic murmur - GI/Abdominal GI/Abdominal exam: Present: normal bowel sounds, soft. Absent: distended, firm , guarding, tenderness, rebound - Extremities Exam Extremities exam: Present: normal inspection. Absent: calf tenderness, edema Results - Labs CBC & BMP: 08/18/16 06:27 08/18/16 06:27 Lab Results: I have reviewed the past 24 hour labs Quality Measures - VTE Deep Vein Thrombosis/Pulmonary Embolism Present on Admission: No Specialty Discharge - Follow Up or Referrals Follow up with: Myles Joy MD [Physician] - 08/24/16 2:50 pm (go to office on August 23 for stress Test. Do not eat anything after 0700 AM, NO caffiene.)
--- NOTE | 2016-08-19 17:20 | Cardiology Progress Note ---
I, Kimi Villasenor RN, am scribing for, and in the presence of, Abhi Luu MD 17:19. Assessment and Plan - Time spent with patient Time spent with patient: Less than 30 minutes (1) Atypical chest pain Status: Acute Assessment and plan: 08/17/16: The patient tells me he had chest pain, but he told my nurse he did not. He described in fairly good detail but he also describes is different from his pain he had prior to his previous 3 stents. It could be an atypical presentation of coronary disease, GI, or muscle skeletal related. Cardiac isoenzymes were negative. Plan/ recommendation : Agree with treatment of his pneumonia. I will have him take as needed sublingual TNG. I will review his medicines and adjust as needed. From my standpoint, whenever you are ready for him to go home, he can go home. He does not need a heart cath at this time and he declines it, too. However, he probably should have a treadmill with Cardiolite, outpatient, at sometime in the future. Our nurse will set that up to be done with Dr. Hardy alvarez I discussed with the patient the benefits of stopping tobacco/nicotine, the problems with continuing to use it, and options of treatment. The patient is considering this option. Thank you for allowing me to participate in this patient's care 08/18/16-plan/recommendation: No overt angina for now. Positive blood cultures noted. Will check the blood culture identification. On antibiotics. We will check C&S to ensure covered well with current antibiotics. Note: I saw the patient on 08/18/16 and was involved with his care management. However, I am signing the note the following day. Current Visit: Yes (2) Left lower lobe pneumonia Status: Acute Current Visit: Yes (3) Hypomagnesemia Status: Acute Current Visit: Yes (4) Alcohol dependency Status: Chronic Current Visit: Yes (5) Hypertension Status: Chronic Current Visit: Yes (6) Medical non-compliance Status: Chronic Current Visit: Yes Cardiology - PN: Subj Interval history: This AM, patient is up and walking down the halls. No obvious distress noted. Currently the nurses and staff are trying to keep patient from leaving AMA. Frequent trips outside to smoke cigarettes. Unable to obtain complete physical exam due to patient not wanting to return to room. He does have a cough. He does state to the nurses and in speaking with Dr. Pathak, patient apparently only experiences chest pain when he has a cough. He will be cleared for discharge pending final blood culture results. Initial cultures drawn on reveal gram (+) cocci. Labs reviewed, and they are WNL. Telemetry monitoring reveals a NSR with HR in 80's. SBP averaging 120 mmHg, DBP 70 mmHg range. Exam (Progress Note) - Constitutional Vitals: Period Temp Pulse Resp BP Sys/Christopher Pulse Ox Last 24 Hr 97.1 F-98.4 F 60-82 18-20 113-127/59-77 91-100 General appearance: no acute distress, disheveled - Head Head exam: Absent: normocephalic - ENT ENT exam: Present: normal external ear exam - Neck Neck exam: Present: normal inspection - Respiratory Respiratory exam: Present: other (unable to auscaltate; refer to subjective) - Cardiovascular Cardiovascular exam: Present: other (unable to auscultate; refer to subjective) - GI/Abdominal GI/Abdominal exam: Present: other (unable to auscultate; refer to subjective) - Extremities Exam Extremities exam: Present: full ROM - Neurological Exam Neurological exam: Present: alert, oriented X3 - Psychiatric Psychiatric exam: Present: other - Skin Skin exam: Present: normal color Result/EKG - Labs CBC & BMP: 08/18/16 06:27 08/18/16 06:27 Lab Results: I have reviewed the past 24 hour labs Labs: Laboratory Results - last 24 hr 08/18/16 08/18/16 06:27 06:27 WBC 8.0 D RBC 4.02 Hgb 12.2 L Hct 37.1 L MCV 92.3 MCH 30 MCHC 32.9 RDW 16.1 Plt Count 99 L D MPV 11.6 Neut % (Auto) 68.3 Lymph % (Auto) 21.0 L [place] % (Auto) 8.1 Eos % (Auto) 2.0 Baso % (Auto) 0.4 Neut # (Auto) 5.5 Lymph # (Auto) 1.7 [place] # (Auto) 0.7 Eos # (Auto) 0.2 Baso # (Auto) 0.0 Immature Gran % 0.2 Nucleated RBC % 0.0 Immature Gran # 0.02 Nucleated RBCs # 0.00 Platelet Estimate Decreased Hypochromasia 1+ Elliptocytes Few Morphology Comment Sodium 144 Potassium 3.8 Chloride 109 H Carbon Dioxide 24 Anion Gap 14.8 BUN 16 Creatinine 0.90 GFR Calculation 98 BUN/Creatinine Ratio 17.00 Glucose 113 H Calculated Osmolality 287.8 Calcium 8.4 L - EKG EKG results: interpreted by me Quality Measures - VTE Deep Vein Thrombosis/Pulmonary Embolism Present on Admission: No Specialty Discharge - Follow Up or Referrals Follow up with: Myles Joy MD [Physician] - 08/24/16 2:50 pm (go to office on August 23 for stress Test. Do not eat anything after 0700 AM, NO caffiene.) I, Abhi Luu MD, personally performed the services described in this documentation, ascribed by Kimi Villasenor RN in my presence, and it is both accurate and complete 718 .
--- NOTE | 2016-08-19 17:22 | Cardiology Progress Note ---
Assessment and Plan (1) Atypical chest pain Status: Acute Assessment and plan: 08/17/16: The patient tells me he had chest pain, but he told my nurse he did not. He described in fairly good detail but he also describes is different from his pain he had prior to his previous 3 stents. It could be an atypical presentation of coronary disease, GI, or muscle skeletal related. Cardiac isoenzymes were negative. Plan/ recommendation : Agree with treatment of his pneumonia. I will have him take as needed sublingual TNG. I will review his medicines and adjust as needed. From my standpoint, whenever you are ready for him to go home, he can go home. He does not need a heart cath at this time and he declines it, too. However, he probably should have a treadmill with Cardiolite, outpatient, at sometime in the future. Our nurse will set that up to be done with Dr. Hardy alvarez I discussed with the patient the benefits of stopping tobacco/nicotine, the problems with continuing to use it, and options of treatment. The patient is considering this option. Thank you for allowing me to participate in this patient's care 08/18/16-plan/recommendation: No overt angina for now. Positive blood cultures noted. Will check the blood culture identification. On antibiotics. We will check C&S to ensure covered well with current antibiotics. Note: I saw the patient on 08/18/16 and was involved with his care management. However, I am signing the note the following day. 08/19/16-plan/recommendation: No heart failure. No angina. Blood cultures are be repeated. Is on antibiotics. Will check the culture and sensitivity. Current Visit: Yes (2) Left lower lobe pneumonia Status: Acute Current Visit: Yes (3) Hypomagnesemia Status: Acute Current Visit: Yes (4) Alcohol dependency Status: Chronic Current Visit: Yes (5) Hypertension Status: Chronic Current Visit: Yes (6) Medical non-compliance Status: Chronic Current Visit: Yes Cardiology - PN: Subj Interval history: No chest pain or shortness of breath. Exam (Progress Note) - Constitutional Vitals: Period Temp Pulse Resp BP Sys/Christopher Pulse Ox Last 24 Hr 97.2 F-98 F 53-76 10-26 94-173/56-109 91-100 Exam: HEENT: Pupils equal, reactive to light and accommodation Neck: NoJVD or bruit Lungs clear to auscultation Heart: Regular rhythm rate with normal S1 and S2. Apical S4 Abdomen: No hepatosplenomegaly Spine/extremities: No clubbing, cyanosis, or edema Neuro: Nonfocal Psych: No depression or anxiety Result/EKG - Labs CBC & BMP: 08/18/16 06:27 08/18/16 06:27 Lab Results: I have reviewed the past 24 hour labs - EKG EKG results: interpreted by me Quality Measures - VTE Deep Vein Thrombosis/Pulmonary Embolism Present on Admission: No Specialty Discharge - Follow Up or Referrals Follow up with: Myles Joy MD [Physician] - 08/24/16 2:50 pm (go to office on August 23 for stress Test. Do not eat anything after 0700 AM, NO caffiene.)
[2016-08-20] MEDS: LEVALBUTEROL 1.25 MG/3 ML NEB RESP TX SCH ×4 (01:15→21:34)
[2016-08-20] MEDS: LORazepam 2 MG/1 ML VIAL IV PRN ×7 (01:40→21:21)
[2016-08-20 04:34] LABS: Basophils % 0.3 % (0.0-0.8); Eosinophils # 0.2 10*3/uL (0.0-0.87); Eosinophils % 2.8 % (0.00-10.9); Hematocrit 37.4 VOL% (42.0-52.0); Hemoglobin 12.2 GM/DL (14.0-18.0); Immature Granulocytes % 0.4 %; Immature Granulocytes Absolute 0.03 #; Lymphocytes # 1.3 10*3/uL (1.4-4.0); Lymphocytes % 18.6 % (21.2-54.2); Mean Corpuscular HGB Conc 32.6 GM/DL (32-36); Mean Corpuscular Hemoglobin 31 PG (27-34); Mean Corpuscular Volume 93.5 FL (87-102); Mean Platelet Volume 11.6 FL (9.6-12.0); Monocytes # 0.8 10*3/uL (0.11-0.8); Monocytes % 11.8 % (1.7-12.7); Neutrophils # 4.7 10*3/uL (1.4-7.4); Neutrophils % 66.1 % (38.7-73.9); Platelet Count 121 10*3/uL (130-400); Red Cell Distribution Width 16.6 % (9.3-17.3)
[2016-08-20 05:09] LABS: Calcium 8.2 MG/DL (8.5-10.1); Osmolality,Calculated 288.6 MOS/KG (273-304); Potassium 3.8 MMOL/L (3.5-5.1)
[2016-08-20] MEDS: METOCLOPRAMIDE 5 MG TABLET PO SCH ×4 (06:32→21:11)
[2016-08-20] MEDS: ZIPRASIDONE 20 MG/1 ML VIAL IM PRN ×3 (07:00→17:39)
[2016-08-20 07:06] LABS: Band Neutrophils 2 % (0-10); Eosinophils 1 % (0-10); Hypochromasia Slight; Lymphocytes 13 % (20-55); Platelet Estimate Decreased; Segmented Neutrophils 74 % (50-85); Total Cells Counted 100
[2016-08-20] MEDS: DORZOLAMIDE/TIMOLOL OPH SOLN 10 ML BOTTLE LEFT EYE SCH ×2 (09:19→21:12)
[2016-08-20] MEDS: BRIMONIDINE 0.2% OPH SOLN 5 ML BOTTLE LEFT EYE SCH ×3 (09:19→21:12)
[2016-08-20] MEDS: MULTIVITAMIN (CENTRUM) TABLET PO SCH (09:19)
[2016-08-20] MEDS: RAMIPRIL 5 MG CAPSULE PO SCH (09:19)
[2016-08-20] MEDS: ASPIRIN 325 MG TABLET PO SCH (09:19)
[2016-08-20] MEDS: MAGNESIUM CHLORIDE 64 MG TABLET PO SCH ×2 (09:20→21:11)
[2016-08-20] MEDS: NICOTINE 21 MG/24 HR PATCH TRANSDERM SCH (09:20)
[2016-08-20] MEDS: CLORAZEPATE 7.5 MG TABLET PO SCH (09:20)
[2016-08-20] MEDS: FOLIC ACID 1 MG TABLET PO SCH (09:20)
[2016-08-20] MEDS: BENZONATATE 100 MG CAPSULE PO SCH ×3 (09:20→21:11)
[2016-08-20] MEDS: PANTOPRAZOLE 40 MG TABLET PO SCH (09:20)
[2016-08-20] MEDS: FAMOTIDINE 20 MG TABLET PO SCH ×2 (09:20→21:12)
[2016-08-20] MEDS: METOPROLOL SUCCINATE XL 100 MG TABLET PO SCH (09:20)
[2016-08-20] MEDS: OMEGA 3 ACID ETHYL ESTERS 1 GM CAPSULE PO SCH (09:20)
[2016-08-20] MEDS: THIAMINE 100 MG TABLET PO SCH (09:21)
[2016-08-20] MEDS: LEVOFLOXACIN INJ 750 MG in PREMIX 1 EACH IV SCH (09:21)
--- NOTE | 2016-08-20 09:55 | Hospitalist Progress Note ---
Assessment and Plan - Time spent with patient Time spent with patient: Greater than 30 minutes (1) Acute encephalopathy Status: Acute Assessment and plan: Patient is somewhat disoriented and agitated. He was transferred to the ICU for one on one care. Likely due to acute alcohol withdrawal. Consult [place]. Current Visit: Yes (2) Left lower lobe pneumonia Status: Acute Assessment and plan: Continue current management. Repeat CXray. Current Visit: Yes (3) Chest pain Status: Chronic Assessment and plan: Serially negative troponins. Appreciate cardiology's assistance. Current Visit: Yes (4) CAD (coronary artery disease) Status: Chronic Assessment and plan: Stable. Current Visit: No Qualifiers: Coronary Disease-Associated Artery/Lesion type: [place] artery (5) Hypertension Status: Chronic Assessment and plan: Continue current management. PRN hydralazine Current Visit: Yes (6) Dyslipidemia Status: Chronic Assessment and plan: Continue current medications. Current Visit: No (7) Alcohol dependency Status: Chronic Assessment and plan: Continue ativan. Current Visit: Yes (8) Positive blood culture Status: Acute Assessment and plan: Streptococcus, continue levaquin. Blood cultures repeated. Current Visit: Yes Hospitalist: Subjective Interval history: No complaints, no overnight events. Exam - Constitutional Vitals: Period Temp Pulse Resp BP Sys/Christopher Pulse Ox Last 24 Hr 97.4 F-99 F 57-77 10-28 94-166/59-97 94-100 General appearance: no acute distress - Head Head exam: Present: normocephalic, atraumatic - Eye Eye exam: Present: EOMI Pupils: Present: JAIME - ENT ENT exam: Present: normal exam - Neck Neck exam: Present: normal inspection - Respiratory Respiratory exam: Present: clear to auscultation bilaterally. Absent: rhonchi, wheezes - Cardiovascular Cardiovascular exam: Present: regular rate and rhythm. Absent: gallop, rubs, systolic murmur - GI/Abdominal GI/Abdominal exam: Present: normal bowel sounds, soft. Absent: distended, firm , guarding, tenderness, rebound - Extremities Exam Extremities exam: Present: normal inspection. Absent: calf tenderness, edema Results - Labs CBC & BMP: 08/20/16 03:11 08/20/16 03:11 Lab Results: I have reviewed the past 24 hour labs Quality Measures - VTE Deep Vein Thrombosis/Pulmonary Embolism Present on Admission: No Specialty Discharge - Follow Up or Referrals Follow up with: Myles Joy MD [Physician] - 08/24/16 2:50 pm (go to office on August 23 for stress Test. Do not eat anything after 0700 AM, NO caffiene.)
--- NOTE | 2016-08-20 11:16 | XRay Report ---
Exam: XR chest 1V portable Date: 08/20/2016 9:55 AM Indication: Pneumonia Comparison: 08/16/2016 Technical:AP portable Findings: Mild cardiomegaly is present. There is minimal residual infiltrate in the left base with the majority of the consolidation left base now resolved. Small granulomas present in the right base. ASVD is present. External cardiac leads are present. Impression: 1. Resolving left lower lobe pneumonia with only a small amount of residual infiltrate and atelectatic change persisting PROCEDURE INTERPRETED AT [facility] DEPARTMENT OF RADIOLOGY Final Report Signed by: Dr. Miguel Simms
--- NOTE | 2016-08-20 15:36 | Cardiology Progress Note ---
Assessment and Plan (1) Atypical chest pain Status: Acute Assessment and plan: 08/17/16: The patient tells me he had chest pain, but he told my nurse he did not. He described in fairly good detail but he also describes is different from his pain he had prior to his previous 3 stents. It could be an atypical presentation of coronary disease, GI, or muscle skeletal related. Cardiac isoenzymes were negative. Plan/ recommendation : Agree with treatment of his pneumonia. I will have him take as needed sublingual TNG. I will review his medicines and adjust as needed. From my standpoint, whenever you are ready for him to go home, he can go home. He does not need a heart cath at this time and he declines it, too. However, he probably should have a treadmill with Cardiolite, outpatient, at sometime in the future. Our nurse will set that up to be done with Dr. Hardy alvarez I discussed with the patient the benefits of stopping tobacco/nicotine, the problems with continuing to use it, and options of treatment. The patient is considering this option. Thank you for allowing me to participate in this patient's care 08/18/16-plan/recommendation: No overt angina for now. Positive blood cultures noted. Will check the blood culture identification. On antibiotics. We will check C&S to ensure covered well with current antibiotics. Note: I saw the patient on 08/18/16 and was involved with his care management. However, I am signing the note the following day. 08/19/16-plan/recommendation: No heart failure. No angina. Blood cultures are be repeated. Is on antibiotics. Will check the culture and sensitivity. 08/20/16-plan/recommendation: He seems to be working through his alcohol withdrawal. I encouraged him to never drink again so this could not happen again. He is considering this possibility. His blood pressure has been borderline low. I will reduce his Toprol-XL to 50 mg daily and will reduce his ramipril to 2.5 mg p.o. daily. Okay with me to move him out of the ICU when you say so. I do not believe his current vague chest pain is due to his heart. At some point, when he is better, he can have an outpatient stress test with Dr. Hardy alvarez. Current Visit: Yes (2) Left lower lobe pneumonia Status: Acute Current Visit: Yes (3) Hypomagnesemia Status: Acute Current Visit: Yes (4) Alcohol dependency Status: Chronic Current Visit: Yes (5) Hypertension Status: Chronic Current Visit: Yes (6) Medical non-compliance Status: Chronic Current Visit: Yes (7) Hypotension due to medication Status: Acute Current Visit: Yes (8) Alcohol withdrawal Status: Acute Current Visit: Yes Cardiology - PN: Subj Interval history: Some mild vague chest pain. It is present all the time. No increased shortness of breath. He is more alert. Exam (Progress Note) - Constitutional Vitals: Period Temp Pulse Resp BP Sys/Christopher Pulse Ox Last 24 Hr 97.4 F-99 F 60-77 14-28 92-166/57-96 94-100 Exam: HEENT: Pupils equal, reactive to light and accommodation Neck: NoJVD or bruit Lungs clear to auscultation Heart: Regular rhythm rate with normal S1 and S2. Apical S4 Abdomen: No hepatosplenomegaly Spine/extremities: No clubbing, cyanosis, or edema Neuro: Nonfocal, more alert. Psych: No depression or anxiety Result/EKG - Labs CBC & BMP: 08/20/16 03:11 08/20/16 03:11 Lab Results: I have reviewed the past 24 hour labs Labs: Laboratory Results - last 24 hr 08/19/16 08/20/16 08/20/16 21:12 03:11 03:11 WBC 7.0 RBC 4.00 Hgb 12.2 L Hct 37.4 L MCV 93.5 MCH 31 MCHC 32.6 RDW 16.6 Plt Count 121 L D MPV 11.6 Neut % (Auto) 66.1 Lymph % (Auto) 18.6 L [place] % (Auto) 11.8 Eos % (Auto) 2.8 Baso % (Auto) 0.3 Neut # (Auto) 4.7 Lymph # (Auto) 1.3 L [place] # (Auto) 0.8 Eos # (Auto) 0.2 Baso # (Auto) 0.0 Total Counted 100 Immature Gran % 0.4 Nucleated RBC % 0.0 Immature Gran # 0.03 Segmented Neutrophils 74 Band Neutrophils 2 Lymphocytes 13 L Monocytes 10 Eosinophils 1 Nucleated RBCs # 0.00 Platelet Estimate Decreased Hypochromasia Slight Sodium 146 H Potassium 3.8 Chloride 111 H Carbon Dioxide 27 Anion Gap 11.8 BUN 12 Creatinine 0.80 GFR Calculation 102 BUN/Creatinine Ratio 15.00 Glucose 86 Calculated Osmolality 288.6 Calcium 8.2 L Vancomycin Trough 15.4 - Diagnostic Findings Procedure: Chest x-ray: report reviewed by me - EKG EKG results: interpreted by me Quality Measures - VTE Deep Vein Thrombosis/Pulmonary Embolism Present on Admission: No Specialty Discharge - Follow Up or Referrals Follow up with: Myles Joy MD [Physician] - 08/24/16 2:50 pm (go to office on August 23 for stress Test. Do not eat anything after 0700 AM, NO caffiene.)
[2016-08-21] MEDS: LEVALBUTEROL 1.25 MG/3 ML NEB RESP TX SCH ×4 (01:14→19:20)
[2016-08-21] MEDS: LORazepam 2 MG/1 ML VIAL IV PRN ×7 (03:52→21:18)
[2016-08-21 04:45] LABS: Basophils % 0.3 % (0.0-0.8); Eosinophils # 0.2 10*3/uL (0.0-0.87); Eosinophils % 2.2 % (0.00-10.9); Hematocrit 37.9 VOL% (42.0-52.0); Hemoglobin 11.9 GM/DL (14.0-18.0); Immature Granulocytes % 0.3 %; Immature Granulocytes Absolute 0.02 #; Lymphocytes # 1.2 10*3/uL (1.4-4.0); Lymphocytes % 17.7 % (21.2-54.2); Mean Corpuscular HGB Conc 31.4 GM/DL (32-36); Mean Corpuscular Hemoglobin 31 PG (27-34); Mean Corpuscular Volume 98.2 FL (87-102); Mean Platelet Volume 11.6 FL (9.6-12.0); Monocytes % 14.3 % (1.7-12.7); Neutrophils # 4.4 10*3/uL (1.4-7.4); Neutrophils % 65.2 % (38.7-73.9); Platelet Count 128 10*3/uL (130-400); Red Blood Count 3.86 10*6/uL (3.8-5.5); Red Cell Distribution Width 17.2 % (9.3-17.3); White Blood Count 6.8 10*3/uL (4.5-13.71)
[2016-08-21 05:10] LABS: Calcium 7.8 MG/DL (8.5-10.1); Osmolality,Calculated 287.7 MOS/KG (273-304); Potassium 4.1 MMOL/L (3.5-5.1)
[2016-08-21 05:39] LABS: Eosinophils 5 % (0-10); Hypochromasia Slight; Lymphocytes 18 % (20-55); Ovalocytes Slight; Platelet Estimate Normal; Segmented Neutrophils 63 % (50-85); Total Cells Counted 100
[2016-08-21] MEDS: METOCLOPRAMIDE 5 MG TABLET PO SCH ×4 (06:30→21:17)
[2016-08-21] MEDS: NICOTINE 21 MG/24 HR PATCH TRANSDERM SCH (08:17)
[2016-08-21] MEDS: ASPIRIN 325 MG TABLET PO SCH (08:24)
[2016-08-21] MEDS: MAGNESIUM CHLORIDE 64 MG TABLET PO SCH ×2 (08:25→21:18)
[2016-08-21] MEDS: THIAMINE 100 MG TABLET PO SCH (08:25)
[2016-08-21] MEDS: MULTIVITAMIN (CENTRUM) TABLET PO SCH (08:25)
[2016-08-21] MEDS: BENZONATATE 100 MG CAPSULE PO SCH ×3 (08:25→21:17)
[2016-08-21] MEDS: FAMOTIDINE 20 MG TABLET PO SCH ×2 (08:26→21:18)
[2016-08-21] MEDS: FOLIC ACID 1 MG TABLET PO SCH (08:26)
[2016-08-21] MEDS: OMEGA 3 ACID ETHYL ESTERS 1 GM CAPSULE PO SCH (08:26)
[2016-08-21] MEDS: CLORAZEPATE 7.5 MG TABLET PO SCH (08:26)
[2016-08-21] MEDS: BRIMONIDINE 0.2% OPH SOLN 5 ML BOTTLE LEFT EYE SCH ×3 (08:27→21:17)
[2016-08-21] MEDS: DORZOLAMIDE/TIMOLOL OPH SOLN 10 ML BOTTLE LEFT EYE SCH ×2 (08:27→21:17)
[2016-08-21] MEDS ORDERED: METOPROLOL SUCCINATE XL 50 MG TABLET PO SCH (09:00)
[2016-08-21] MEDS: LEVOFLOXACIN INJ 750 MG in PREMIX 1 EACH IV SCH (09:47)
[2016-08-21] MEDS: RAMIPRIL 2.5 MG CAPSULE PO SCH (10:04)
--- NOTE | 2016-08-21 10:16 | Cardiology Progress Note ---
I, Roxann Gil RN, am scribing for, and in the presence of, Elizabeth Meza MD 10:15. Assessment and Plan (1) Atypical chest pain Status: Acute Assessment and plan: Will plan to do stress test in the morning. Current Visit: Yes (2) Left lower lobe pneumonia Status: Acute Current Visit: Yes (3) Alcohol dependency Status: Chronic Current Visit: Yes (4) Hypertension Status: Chronic Current Visit: Yes (5) Medical non-compliance Status: Chronic Current Visit: Yes (6) Alcohol withdrawal Status: Acute Current Visit: Yes Cardiology - PN: Subj Interval history: When I enter the room, the patient is somewhat distressed. He tells me that his blood work was abnormal and he needs a heart catheterization. We discussed his symptoms at length. I reassured him that his blood work was not abnormal. Symptoms are somewhat atypical, and he does drink significant alcohol and takes aspirin daily, and certainly this could be coming from a GI source. Given the fact that he is known to have coronary artery disease, I do believe he needs further risk stratification with stress testing. Reviewing the chart it is unclear how much chest pain he has had over the weekend, but he tells me that he has continued to have intermittent chest pain and is very concerned that he has an underlying cardiac problem. We discussed his symptoms and concerns at length. Patient is doing well this morning. He is currently being evaluated for [facility]. He is eating breakfast now, will plan to do stress test in the morning. If stress test is ok for patient to to discharged to [facility]. He is without complaints this morning. His cardiac biomarkers have been negative. He is currently in sinus rhythm with heart rates in the 70's. Blood pressure continues to be elevated, may be from possible alcohol withdrawal. He cannot undergo stress testing today because he has already had his beta dave and consumed caffeine. He does not want to leave the hospital without the stress test. Exam (Progress Note) - Constitutional Vitals: Period Temp Pulse Resp BP Sys/Christopher Pulse Ox Last 24 Hr 97.4 F-98.9 F 57-76 13-27 92-166/57-109 66-100 General appearance: no acute distress - Head Head exam: Present: normal inspection, normocephalic, atraumatic - Eye Eye exam: Present: EOMI. Absent: conjunctival injection, nystagmus, periorbital swelling, scleral icterus, laceration to eyelids Pupils: Absent: JAIME, dilated, fixed, irregular - ENT ENT exam: Present: normal exam, normal external ear exam - Neck Neck exam: Present: normal inspection. Absent: tenderness, thyromegaly - Respiratory Respiratory exam: Present: clear to auscultation bilaterally. Absent: rales, rhonchi, stridor, wheezes - Cardiovascular Cardiovascular exam: Present: regular rate and rhythm. Absent: gallop, irregular rhythm, systolic murmur, tachycardia - GI/Abdominal GI/Abdominal exam: Present: normal bowel sounds, soft. Absent: tenderness - Extremities Exam Extremities exam: Present: normal inspection. Absent: calf tenderness, edema - Back Exam Back exam: Present: normal inspection. Absent: muscle spasm, vertebral tenderness - Neurological Exam Neurological exam: Present: alert, oriented X3 - Psychiatric Psychiatric exam: Present: normal mood, anxious - Skin Skin exam: Present: normal color, warm, dry Result/EKG - Labs CBC & BMP: 08/21/16 04:12 08/21/16 04:12 Lab Results: I have reviewed the past 24 hour labs Labs: Laboratory Results - last 24 hr 08/21/16 08/21/16 04:12 04:12 WBC 6.8 RBC 3.86 Hgb 11.9 L Hct 37.9 L MCV 98.2 MCH 31 MCHC 31.4 L RDW 17.2 Plt Count 128 L MPV 11.6 Neut % (Auto) 65.2 Lymph % (Auto) 17.7 L [place] % (Auto) 14.3 H Eos % (Auto) 2.2 Baso % (Auto) 0.3 Neut # (Auto) 4.4 Lymph # (Auto) 1.2 L [place] # (Auto) 1.0 H Eos # (Auto) 0.2 Baso # (Auto) 0.0 Total Counted 100 Immature Gran % 0.3 Nucleated RBC % 0.0 Immature Gran # 0.02 Segmented Neutrophils 63 Lymphocytes 18 L Monocytes 14 Eosinophils 5 Nucleated RBCs # 0.00 Platelet Estimate Normal Hypochromasia Slight Ovalocytes Slight Sodium 145 Potassium 4.1 Chloride 113 H Carbon Dioxide 20 L Anion Gap 16.1 H BUN 13 Creatinine 0.70 GFR Calculation 107 BUN/Creatinine Ratio 18.00 Glucose 101 Calculated Osmolality 287.7 Calcium 7.8 L - EKG EKG results: interpreted by me, sinus rhythm Quality Measures - VTE Deep Vein Thrombosis/Pulmonary Embolism Present on Admission: No Specialty Discharge - Follow Up or Referrals Follow up with: Myles Joy MD [Physician] - 08/24/16 2:50 pm (go to office on August 23 for stress Test. Do not eat anything after 0700 AM, NO caffiene.) I, Elizabeth Meza MD, personally performed the services described in this documentation, ascribed by Roxann Gil RN in my presence, and it is both accurate and complete 016 .
--- NOTE | 2016-08-21 10:30 | Hospitalist Progress Note ---
Assessment and Plan - Time spent with patient Time spent with patient: Greater than 30 minutes (1) Acute encephalopathy Status: Acute Assessment and plan: Completely resolved. He refused transfer to [facility]. Current Visit: Yes (2) Left lower lobe pneumonia Status: Acute Assessment and plan: Continue current management. Current Visit: Yes (3) Chest pain Status: Chronic Assessment and plan: Stress test tomorrow. Current Visit: Yes (4) CAD (coronary artery disease) Status: Chronic Assessment and plan: Stable. Current Visit: No Qualifiers: Coronary Disease-Associated Artery/Lesion type: [place] artery (5) Hypertension Status: Chronic Assessment and plan: Continue current management. PRN hydralazine Current Visit: Yes (6) Dyslipidemia Status: Chronic Assessment and plan: Continue current medications. Current Visit: No (7) Alcohol dependency Status: Chronic Assessment and plan: Continue ativan. Current Visit: Yes (8) Positive blood culture Status: Acute Assessment and plan: Streptococcus, continue levaquin. Blood cultures repeated. Current Visit: Yes Hospitalist: Subjective Interval history: No complaints, no overnight events. He has refused [place]. He is alert, and states he is homeless and has no where to go if hes discharged. Exam - Constitutional Vitals: Period Temp Pulse Resp BP Sys/Christopher Pulse Ox Last 24 Hr 97.4 F-98.9 F 57-76 13-27 92-166/57-109 66-100 General appearance: no acute distress - Head Head exam: Present: normocephalic, atraumatic - Eye Eye exam: Present: EOMI Pupils: Present: JAIME - ENT ENT exam: Present: normal exam - Neck Neck exam: Present: normal inspection - Respiratory Respiratory exam: Present: clear to auscultation bilaterally. Absent: rhonchi, wheezes - Cardiovascular Cardiovascular exam: Present: regular rate and rhythm. Absent: gallop, rubs, systolic murmur - GI/Abdominal GI/Abdominal exam: Present: normal bowel sounds, soft. Absent: distended, firm , guarding, tenderness, rebound - Extremities Exam Extremities exam: Present: normal inspection. Absent: calf tenderness, edema Results - Labs CBC & BMP: 08/21/16 04:12 08/21/16 04:12 Lab Results: I have reviewed the past 24 hour labs Quality Measures - VTE Deep Vein Thrombosis/Pulmonary Embolism Present on Admission: No Specialty Discharge - Follow Up or Referrals Follow up with: Myles Joy MD [Physician] - 08/24/16 2:50 pm (go to office on August 23 for stress Test. Do not eat anything after 0700 AM, NO caffiene.)
[2016-08-21] MEDS: RAMIPRIL 5 MG CAPSULE PO SCH (10:59)
[2016-08-22] MEDS: LEVALBUTEROL 1.25 MG/3 ML NEB RESP TX SCH ×3 (00:35→13:47)
[2016-08-22 05:50] LABS: Basophils % 0.5 % (0.0-0.8); Eosinophils # 0.2 10*3/uL (0.0-0.87); Hematocrit 37.2 VOL% (42.0-52.0); Hemoglobin 12.3 GM/DL (14.0-18.0); Immature Granulocytes % 0.4 %; Immature Granulocytes Absolute 0.03 #; Lymphocytes # 2.1 10*3/uL (1.4-4.0); Lymphocytes % 26.3 % (21.2-54.2); Mean Corpuscular HGB Conc 33.1 GM/DL (32-36); Mean Corpuscular Hemoglobin 32 PG (27-34); Mean Corpuscular Volume 95.9 FL (87-102); Mean Platelet Volume 10.3 FL (9.6-12.0); Monocytes # 1.2 10*3/uL (0.11-0.8); Monocytes % 14.6 % (1.7-12.7); Neutrophils # 4.3 10*3/uL (1.4-7.4); Neutrophils % 55.2 % (38.7-73.9); Platelet Count 182 10*3/uL (130-400); Red Blood Count 3.88 10*6/uL (3.8-5.5); Red Cell Distribution Width 17.2 % (9.3-17.3); White Blood Count 7.9 10*3/uL (4.5-13.71)
[2016-08-22 06:23] LABS: Calcium 8.4 MG/DL (8.5-10.1); Osmolality,Calculated 288.6 MOS/KG (273-304); Potassium 3.8 MMOL/L (3.5-5.1)
[2016-08-22] MEDS: NICOTINE 21 MG/24 HR PATCH TRANSDERM SCH (08:10)
[2016-08-22] MEDS: DORZOLAMIDE/TIMOLOL OPH SOLN 10 ML BOTTLE LEFT EYE SCH (08:10)
[2016-08-22] MEDS: BRIMONIDINE 0.2% OPH SOLN 5 ML BOTTLE LEFT EYE SCH ×2 (08:11→14:07)
[2016-08-22] MEDS ORDERED: REGADENOSON 0.4 MG/5 ML SYRINGE IV ONE (09:55)
[2016-08-22] MEDS: RAMIPRIL 2.5 MG CAPSULE PO SCH (10:46)
[2016-08-22] MEDS: BENZONATATE 100 MG CAPSULE PO SCH ×2 (10:47→14:07)
[2016-08-22] MEDS: RAMIPRIL 5 MG CAPSULE PO SCH (10:47)
[2016-08-22] MEDS: MAGNESIUM CHLORIDE 64 MG TABLET PO SCH (10:48)
[2016-08-22] MEDS: THIAMINE 100 MG TABLET PO SCH (10:48)
[2016-08-22] MEDS: OMEGA 3 ACID ETHYL ESTERS 1 GM CAPSULE PO SCH (10:48)
[2016-08-22] MEDS: ASPIRIN 325 MG TABLET PO SCH (10:48)
[2016-08-22] MEDS: MULTIVITAMIN (CENTRUM) TABLET PO SCH (10:48)
[2016-08-22] MEDS: METOCLOPRAMIDE 5 MG TABLET PO SCH ×4 (10:48→16:19)
[2016-08-22] MEDS: CLORAZEPATE 7.5 MG TABLET PO SCH (10:49)
[2016-08-22] MEDS: LEVOFLOXACIN INJ 750 MG in PREMIX 1 EACH IV SCH (10:49)
[2016-08-22] MEDS: FOLIC ACID 1 MG TABLET PO SCH (10:49)
[2016-08-22] MEDS: FAMOTIDINE 20 MG TABLET PO SCH (10:49)
[2016-08-22] MEDS: LORazepam 2 MG/1 ML VIAL IV PRN ×2 (10:57→15:25)
--- NOTE | 2016-08-22 13:12 | Discharge Summary ---
Hospital Course - Hospital Course Hospital Course: Mr Crowe presented with chest pain. Serial troponins were negative. Cardiology was consulted. Blood pressure medications were adjusted. He had a stress test which was reviewed by the fundraising consultant Dr Stokes and cleared for discharge with follow up. He will follow up with Dr Joy on 08/24/16. Pneumonia: CXray on admission revealed a left lower lobe infiltrate concerning for pneumonia. He was initiated on Levaquin. Had no elevation of temperature or WBC during his hospital stay. Delerium tremens: During his hospital stay he developed delerium that was felt to be due to DT. He was managed with ativan IV and even required a brief stay in the ICU for a 72 hour hold as he threatened to leave. This resolved. He was evaluated by [place] and refused admission. Bacteremia: Blood cultures returned positive for strep salivarius and staph capitis. Sensitive to Levaquin. Repeat blood cultures were negative. He will continue Levaquin for a total of 14 days after negative blood culture. - Time spent with patient Time with patient DS: Greater than 30 minutes Diagnosis - Discharge Diagnosis (1) Acute encephalopathy Status: Acute (2) Left lower lobe pneumonia Status: Acute (3) Chest pain Status: Chronic (4) CAD (coronary artery disease) Status: Chronic (5) Hypertension Status: Chronic (6) Dyslipidemia Status: Chronic (7) Alcohol dependency Status: Chronic (8) Positive blood culture Status: Acute Specialty Discharge - Follow Up or Referrals Follow up with: Myles Joy MD [Physician] - 08/24/16 2:50 pm (go to office on August 23 for stress Test. Do not eat anything after 0700 AM, NO caffiene.) Discharge Plan - Discharge Data Disposition: Disch To Home/Self Care Condition at Discharge: Stable Discharge Diet: advance to your usual diet Activity: resume usual activities as tolerated - Discharge Medications New Metoprolol Succinate Xl [Toprol Xl] 50 mg PO DAILY #30 tablet Levofloxacin Tab [Levaquin Tab] 750 mg PO DAILY #10 tablet Nicotine 21 mg/24 Hr Patch [Nicoderm CQ 21 mg/24 hr Patch] 1 patch TRANSDERM DAILY #30 patch Ramipril [Altace] 2.5 mg PO DAILY #30 capsule Discontinued Metoprolol Succinate 100 mg PO DAILY Ramipril 20 mg PO DAILY Ranitidine Tab [Zantac Tab] 150 mg PO DAILY No Action traZODone [Desyrel] 150 mg PO BEDTIME Clorazepate [Tranxene] 7.5 mg PO DAILY Magnesium Chloride [Slow Mag] 64 mg PO BID #60 tablet Brimonidine Tartrate [Brimonidine 0.2% Oph Soln] 1 drop LEFT EYE TID Dorzolamide HCl/Timolol Maleat [Dorzolamide/Timolol Oph Soln] 1 drop LEFT EYE BID Omeprazole 40 mg PO DAILY Aspirin Tab 325 mg PO DAILY Benzonatate 200 mg PO TID Krill/Om-3/Dha/Epa/Phospho/Ast [[place]-3 Krill Oil 300 mg Sfgl] 1 each PO DAILY Metoclopramide Tab [Reglan Tab] 5 mg PO ACHS #120 tablet Ranitidine Tab [Zantac Tab] 150 mg PO BID #60 tablet - Follow Up or Referral Follow Up: Myles Joy MD [Physician] - 08/24/16 2:50 pm (go to office on August 23 for stress Test. Do not eat anything after 0700 AM, NO caffiene.) - Forms/Instructions Instructions: How to Stop Smoking (DC), Alcohol Intoxication (DC) Exam - Constitutional Vitals: Period Temp Pulse Resp BP Sys/Christopher Pulse Ox Last 24 Hr 97.2 F-98.9 F 52-70 16-20 113-152/57-89 95-100 General appearance: normal weight, no acute distress - Head Head exam: Present: normal inspection - Eye Eye exam: Present: EOMI Pupils: Present: JAIME - ENT ENT exam: Present: normal exam - Neck Neck exam: Present: normal inspection - Respiratory Respiratory exam: Present: clear to auscultation bilaterally - Cardiovascular Cardiovascular exam: Present: regular rate and rhythm - GI/Abdominal GI/Abdominal exam: Present: normal bowel sounds - Extremities Exam Extremities exam: Present: normal inspection Discharge Results Procedures and tests throughout hospitalization: Pending Orders 08/18/16 11:36 Blood Culture Stat 08/22/16 04:00 NM rosi perf SPECT rest or str IN AM Labs on day of discharge: Labs from last 24 hours 08/22/16 08/22/16 05:17 05:17 WBC 7.9 RBC 3.88 Hgb 12.3 L Hct 37.2 L MCV 95.9 MCH 32 MCHC 33.1 RDW 17.2 Plt Count 182 D MPV 10.3 Neut % (Auto) 55.2 Lymph % (Auto) 26.3 [place] % (Auto) 14.6 H Eos % (Auto) 3.0 Baso % (Auto) 0.5 Neut # (Auto) 4.3 Lymph # (Auto) 2.1 [place] # (Auto) 1.2 H Eos # (Auto) 0.2 Baso # (Auto) 0.0 Immature Gran % 0.4 Nucleated RBC % 0.0 Immature Gran # 0.03 Nucleated RBCs # 0.00 Sodium 146 H Potassium 3.8 Chloride 112 H Carbon Dioxide 26 Anion Gap 11.8 BUN 12 Creatinine 0.70 GFR Calculation 108 BUN/Creatinine Ratio 17.00 Glucose 89 Calculated Osmolality 288.6 Calcium 8.4 L Preliminary micro results at discharge 08/16/16 13:02 Blood Culture - Preliminary Blood Gram Positive Cocci 08/18/16 11:36 Blood Culture - Preliminary Blood No growth at 3 days 08/18/16 11:30 Blood Culture - Preliminary Blood No growth at 3 days DS: Provider Date of admission: 08/16/16 05:00 Primary care physician: . No PCP Attending physician on admission: Gertrude Pathak MD Consults: 08/16/16 13:19 Consult to Dietitian [CONS] Routine Reason for Dietitian: Dietary Consult Consult to Pastoral Services [CONS] Routine Comment: Pastoral Screen: Declines Visit Pastoral Screen Source of Request: Patient 08/17/16 08:41 Consult to Physician [CONS] Routine Comment: chest pain Consulting Provider: Cardiology - [facility] Consult to Specialist Group: Cardiology When should Consulting Provider be notified: Now Person Notified: SKIP Date Notified: 08/17/16 Time Notified: 08:49 08/20/16 08:34 Consult to Case Mgmt/Social Srvs [CONS] Routine Reason for Case Mgmt/Social Srvs: Psychiatric Management 08/21/16 10:29 Consult to Case Mgmt/Social Srvs [CONS] Routine Reason for Case Mgmt/Social Srvs: Discharge Planning Consult Comment: homeless Discharging clinician: Gertrude Pathak MD Expected date of discharge: 08/22/16
[2016-08-22 16:49] VITALS: BP 141/96
--- NOTE | 2016-08-22 16:50 | Nuclear Medicine Report ---
NUCLEAR STRESS TEST DATE: 08/22/2016 REFERRING PHYSICIAN: Elizabeth Meza MD INTERPRETING PHYSICIAN: Elizabeth Meza MD INDICATION: A 56-year-old male with chest discomfort. PROCEDURE: The patient underwent Lexiscan Cardiolite per protocol. He initially underwent exercise stress testing but could not achieve target heart rate due to gait instability and was converted to Lexiscan protocol. 10 mCi Technetium-99 was injected for rest imaging. Subsequently, the patient was exercised per Sung protocol and after he was unable to achieve target heart rate, he received L exiscan 0.4 mg IV followed by 30.0 mCi Technetium-99 for stress imaging. EKG interpretation was supervised and interpreted by practitioner María. There was [address] depress ion with exercise that resolved with rest. SPECT images were obtained in the short axis, horizontal, and vertical long axis with gating. Eject ion fraction is 70%. End-diastolic volume 86 mL, end-systolic volume 26 mL, stroke volume is 60 mL. There was normal thickening and wall motion. At rest, there is a moderate extent, [id number] intensity perfusion defect involving the infer ior and inferoseptal kemp in the basal to mid segments. With stress imaging, the previously seen d efect improves such that there is a moderate extent, mild intensity perfusion defect in the inferose ptal territory that is much smaller than what is seen on rest images. The patient does, however, de velop a very small extent, mild intensity perfusion defect in the distal anterior wall. On review o f cine images, diaphragmatic attenuation is noted. IMPRESSION: 1. EXERCISE TOLERANCE LIMITED BY GAIT INSTABILITY. 2. NORMAL LEFT VENTRICULAR SYSTOLIC FUNCTION. 3. INFERIOR WALL PERFUSION DEFECT DESCRIBED ABOVE THAT IMPROVES WITH STRESS WHEN COMPARED TO RES T AND IS THOUGHT TO BE SECONDARY TO DIAPHRAGMATIC ATTENUATION. 4. VERY SMALL EXTENT, VERY MILD INTENSITY REVERSIBLE PERFUSION DEFECT SEEN IN THE VERY DISTAL ANTER IOR WALL AT THE ANTERIOR APEX. THIS IS A VERY SUBTLE FINDING THAT COULD REPRESENT AN ARTIFACT FROM ATTENUATION, OR COULD REPRESENT A VERY SMALL PORTION OF REVERSIBLE ISCHEMIA. THIS AREA REPRESENTS L ESS THAN 5% OF THE MYOCARDIUM. Procedure performed and interpreted at [facility] Department of Radiology.
--- NOTE | 2016-08-22 17:48 | Cardiology Progress Note ---
Assessment and Plan - Time spent with patient Time spent with patient: Less than 30 minutes (1) Alcohol dependency Status: Chronic Assessment and plan: Continue current plan of care Current Visit: Yes (2) Chest pain Status: Chronic Assessment and plan: No chest pain overnight. Nothing by mouth for stress testing today. Current Visit: Yes (3) CAD (coronary artery disease) Status: Chronic Assessment and plan: Reports a history of heart disease in the past. Current Visit: No Qualifiers: Coronary Disease-Associated Artery/Lesion type: beaver artery (4) Hypertension Status: Chronic Assessment and plan: Continue current plan of care Current Visit: Yes (5) Dyslipidemia Status: Chronic Assessment and plan: Continue current plan of care Current Visit: No Cardiology - PN: Subj Interval history: Patient is nothing by mouth for stress testing today. He states he's had no additional chest pain, heaviness or tightness. His vital signs are stable. Pleasant and cooperative. Exam (Progress Note) - Constitutional Vitals: Period Temp Pulse Resp BP Sys/Christopher Pulse Ox Last 24 Hr 97.2 F-98.9 F 52-72 16-20 113-152/57-96 96-100 Exam: General: Appears well with no apparent distress. Pleasant and cooperative. Appears comfortable. HEENT: PERRL, normocephalic, atraumatic. Mucous membranes moist. No jaundice noted. Conjunctiva moist and clear, sclerae anicteric Neck: No JVD/HJR, no thyromegaly or lymphadenopathy noted. No carotid bruit appreciated Cardiac: Regular rate and rhythm. No murmur rub or gallop. Lungs: Clear to auscultation without accessory muscle use to assist the respiratory pattern. Not requiring oxygen. Abdomen: Soft, bowel sounds normoactive. Nontender and nondistended. No abdominal bruit or thrill noted. No masses noted. Musculoskeletal: No fluid collection. Decreased range of motion is noted. Extremities: No clubbing, cyanosis noted. No edema noted. Upper extremity pulses 2+. Lower extremity pulses 2+. Capillary refill less than 3 seconds. Skin: No unusual lesions or rashes. No skin breakdown appreciated. Neuro: Awake, alert and oriented 3. Moves all extremities well without hemiparesis or paralysis. No essential tremor is appreciated. Result/EKG - Labs CBC & BMP: 08/22/16 05:17 08/22/16 05:17 Lab Results: I have reviewed the past 24 hour labs Labs: Laboratory Results - last 24 hr 08/22/16 08/22/16 05:17 05:17 WBC 7.9 RBC 3.88 Hgb 12.3 L Hct 37.2 L MCV 95.9 MCH 32 MCHC 33.1 RDW 17.2 Plt Count 182 D MPV 10.3 Neut % (Auto) 55.2 Lymph % (Auto) 26.3 Graham % (Auto) 14.6 H Eos % (Auto) 3.0 Baso % (Auto) 0.5 Neut # (Auto) 4.3 Lymph # (Auto) 2.1 Graham # (Auto) 1.2 H Eos # (Auto) 0.2 Baso # (Auto) 0.0 Immature Gran % 0.4 Nucleated RBC % 0.0 Immature Gran # 0.03 Nucleated RBCs # 0.00 Sodium 146 H Potassium 3.8 Chloride 112 H Carbon Dioxide 26 Anion Gap 11.8 BUN 12 Creatinine 0.70 GFR Calculation 108 BUN/Creatinine Ratio 17.00 Glucose 89 Calculated Osmolality 288.6 Calcium 8.4 L - Diagnostic Findings Procedure: Chest x-ray: report reviewed by me - EKG EKG results: interpreted by sd EKG shows: sinus rhythm Quality Measures - VTE Deep Vein Thrombosis/Pulmonary Embolism Present on Admission: No Specialty Discharge - Follow Up or Referrals Follow up with: Myles Joy MD [Physician] - 08/24/16 2:50 pm (go to office on August 23 for stress Test. Do not eat anything after 0700 AM, NO caffiene.)
--- NOTE | 2016-08-22 17:50 | Event Note ---
Patient attempted GXT but due to gait instability, transitioned to Lexiscan. Tolerated with no complaints of chest pain, heaviness or tightness. No arrythmia. 1mm ST depression noted inferior leads with exertion, resolved with rest. Now to nuclear medicine to complete final scan. Dr. Meza to read, interpret and advise.
== END 2016-08-22 17:55 | disposition home or self-care (01) | DRG 193 ==
LOC: EDBD → EDUNIT# → N.ED 03:17 → N.EDINP 05:00 → N.2E 11:53 → N.CC 08-18 18:18 → N.5E 08-21 10:41
PROVIDERS: ADMIT Internal Medicine; ATTEND Internal Medicine

== ENCOUNTER 2017-08-30 07:57 | Observation (INO) ==
[2017-08-30] MEDS ORDERED: ASPIRIN 325 MG TABLET PO STA (08:42)
[2017-08-30 08:48] LABS: Basophils # 0.1 10*3/uL (0.0-0.2); Basophils % 0.9 % (0.0-0.8); Eosinophils # 0.1 10*3/uL (0.0-0.87); Eosinophils % 0.8 % (0.00-10.9); Hematocrit 46.2 VOL% (42.0-52.0); Hemoglobin 16.2 GM/DL (14.0-18.0); Immature Granulocytes % 0.4 %; Immature Granulocytes Absolute 0.03 #; Lymphocytes # 1.3 10*3/uL (1.4-4.0); Lymphocytes % 16.9 % (21.2-54.2); Mean Corpuscular HGB Conc 35.1 GM/DL (32-36); Mean Corpuscular Hemoglobin 33 PG (27-34); Mean Platelet Volume 9.4 FL (9.6-12.0); Monocytes # 0.5 10*3/uL (0.11-0.8); Monocytes % 6.6 % (1.7-12.7); Neutrophils # 5.7 10*3/uL (1.4-7.4); Neutrophils % 74.4 % (38.7-73.9); Platelet Count 225 T/CUMM (130-400); Red Blood Count 4.97 MC/CUMM (3.8-5.5); Red Cell Distribution Width 14.8 % (9.3-17.3); White Blood Count 7.6 T/CUMM (4-12)
[2017-08-30 08:54] LABS: INR 0.9; PT Patient Result 9.9 SECS; Partial Thromboplastin Time 25.7 SECS (0-40)
[2017-08-30 09:01] LABS: Albumin 3.6 G/DL (3.4-5.0); Bilirubin,Total 0.7 MG/DL (0.2-1.0); Calcium 8.5 MG/DL (8.5-10.1); Osmolality,Calculated 278.5 MOS/KG (273-304); Potassium 4.2 MMOL/L (3.5-5.1); Total Protein 7.1 G/DL (6.4-8.3)
[2017-08-30] MEDS ORDERED: ASPIRIN 325 MG TABLET ONE (09:05)
[2017-08-30] MEDS ORDERED: ONDANSETRON 4 MG/2 ML VIAL ONE (09:05)
[2017-08-30] MEDS ORDERED: ONDANSETRON 4 MG/2 ML VIAL IV STA (09:11)
[2017-08-30 09:33] LABS: Barbiturates Screen,Urine Negative (Negative); Benzodiazepines Screen,Urine Negative (Negative); Cannabinoid Screen,Urine Negative (Negative); Opiate Screen,Urine Negative (Negative); Phencyclidine Screen,Urine Negative (Negative)
[2017-08-30] MEDS ORDERED: MAGNESIUM HYDROXIDE SUSP 30 ML UDCUP PO PRN (12:59)
[2017-08-30] MEDS ORDERED: MORPHINE 2 MG/1 ML SYRINGE IV PRN (12:59)
[2017-08-30] MEDS ORDERED: ACETAMINOPHEN 325 MG TABLET PO PRN (12:59)
[2017-08-30] MEDS ORDERED: ONDANSETRON 4 MG/2 ML VIAL IV PRN (12:59)
[2017-08-30] MEDS ORDERED: ENOXAPARIN 40 MG/0.4 ML SYRINGE SUBCUT SCH (14:00)
[2017-08-30] MEDS ORDERED: TICAGRELOR 90 MG TABLET PO STA (14:09)
[2017-08-30] MEDS ORDERED: MAGNESIUM SULF RIDER 2 GM in PREMIX 1 EACH IV PRN (14:17)
[2017-08-30] MEDS ORDERED: NICOTINE 21 MG/24 HR PATCH TRANSDERM PRN (15:20)
[2017-08-30 15:23] LABS: Troponin I Only < 0.015 NG/ML (0.00-0.045)
[2017-08-30] MEDS ORDERED: ENOXAPARIN 80 MG/0.8 ML SYRINGE SUBCUT ONE (17:13)
[2017-08-30] MEDS: CLORAZEPATE 7.5 MG TABLET PO PRN ×2 (17:32→23:07)
[2017-08-30 18:34] LABS: Troponin I Only < 0.015 NG/ML (0.00-0.045)
[2017-08-30] MEDS: NITROGLYCERIN 2% OINT 1 INCH/GM PACK TOP SCH ×2 (18:47→23:07)
[2017-08-30] MEDS ORDERED: hydrALAZINE 20 MG/1 ML VIAL IV PRN (20:03)
[2017-08-30] MEDS: ROSUVASTATIN 20 MG TABLET PO SCH (20:41)
[2017-08-30] MEDS ORDERED: PANTOPRAZOLE 40 MG TABLET PO ONE (22:30)
[2017-08-30] MEDS: SODIUM CHLORIDE 0.9% 1,000 ML IV SCH (23:07)
[2017-08-31] MEDS ORDERED: POTASSIUM CHLORIDE RIDER 10 MEQ in PREMIX 1 EACH IV PRN (06:30)
[2017-08-31] MEDS: NITROGLYCERIN 2% OINT 1 INCH/GM PACK TOP SCH ×3 (06:42→18:04)
[2017-08-31] MEDS: SODIUM CHLORIDE 0.9% 1,000 ML IV SCH (06:48)
[2017-08-31 07:35] LABS: Basophils # 0.1 10*3/uL (0.0-0.2); Basophils % 0.6 % (0.0-0.8); Eosinophils # 0.2 10*3/uL (0.0-0.87); Eosinophils % 1.9 % (0.00-10.9); Hematocrit 41.1 VOL% (42.0-52.0); Hemoglobin 14.4 GM/DL (14.0-18.0); Immature Granulocytes % 0.3 %; Immature Granulocytes Absolute 0.02 #; Lymphocytes # 1.4 10*3/uL (1.4-4.0); Lymphocytes % 17.7 % (21.2-54.2); Mean Corpuscular Hemoglobin 33 PG (27-34); Mean Corpuscular Volume 94.1 FL (87-102); Mean Platelet Volume 9.5 FL (9.6-12.0); Monocytes # 0.7 10*3/uL (0.11-0.8); Monocytes % 8.6 % (1.7-12.7); Neutrophils # 5.6 10*3/uL (1.4-7.4); Neutrophils % 70.9 % (38.7-73.9); Platelet Count 188 T/CUMM (130-400); Red Blood Count 4.37 MC/CUMM (3.8-5.5); Red Cell Distribution Width 14.6 % (9.3-17.3); White Blood Count 7.9 T/CUMM (4-12)
[2017-08-31] MEDS: LISINOPRIL 20 MG TABLET PO SCH ×2 (07:38→11:07)
[2017-08-31] MEDS: METOPROLOL SUCCINATE XL 50 MG TABLET PO SCH ×2 (07:38→11:07)
[2017-08-31] MEDS ORDERED: MEPERIDINE 25 MG/1 ML VIAL ONE (07:51)
[2017-08-31] MEDS ORDERED: MIDAZOLAM 2 MG/2 ML VIAL ONE (07:51)
[2017-08-31] MEDS ORDERED: LIDOCAINE 2% 20 ML VIAL ONE (07:52)
[2017-08-31] MEDS ORDERED: diphenhydrAMINE CAP 25 MG CAPSULE PO ONE (08:00)
[2017-08-31] MEDS ORDERED: DIAZEPAM 5 MG TABLET PO ONE (08:00)
[2017-08-31 08:06] LABS: Albumin 3.2 G/DL (3.4-5.0); Bilirubin,Direct 0.32 MG/DL (0.0-0.20); Bilirubin,Indirect 1.9 MG/DL (0.0-1.0); Bilirubin,Total 2.2 MG/DL (0.2-1.0); Calcium 8.5 MG/DL (8.5-10.1); Osmolality,Calculated 273.8 MOS/KG (273-304); Potassium 4.3 MMOL/L (3.5-5.1); Risk Ratio 1.91; Total Protein 6.3 G/DL (6.4-8.3); VLDL CHOLESTEROL 13.4 MG/DL
[2017-08-31] MEDS ORDERED: ASPIRIN EC 81 MG TABLET PO SCH (09:00)
[2017-08-31] MEDS ORDERED: TICAGRELOR 90 MG TABLET PO SCH (09:00)
[2017-08-31] MEDS: PANTOPRAZOLE 40 MG TABLET PO SCH (11:07)
[2017-08-31] MEDS: ROSUVASTATIN 20 MG TABLET PO SCH (21:05)
[2017-08-31] MEDS: CLORAZEPATE 7.5 MG TABLET PO PRN (21:06)
[2017-09-01] MEDS: NITROGLYCERIN 2% OINT 1 INCH/GM PACK TOP SCH ×2 (00:20→06:27)
[2017-09-01 06:22] LABS: Basophils % 0.4 % (0.0-0.8); Eosinophils # 0.3 10*3/uL (0.0-0.87); Eosinophils % 3.5 % (0.00-10.9); Hematocrit 39.9 VOL% (42.0-52.0); Immature Granulocytes % 0.4 %; Immature Granulocytes Absolute 0.03 #; Lymphocytes # 2.8 10*3/uL (1.4-4.0); Lymphocytes % 34.4 % (21.2-54.2); Mean Corpuscular HGB Conc 35.1 GM/DL (32-36); Mean Corpuscular Hemoglobin 33 PG (27-34); Mean Corpuscular Volume 95.2 FL (87-102); Mean Platelet Volume 10.2 FL (9.6-12.0); Monocytes # 0.7 10*3/uL (0.11-0.8); Monocytes % 8.6 % (1.7-12.7); Neutrophils # 4.3 10*3/uL (1.4-7.4); Neutrophils % 52.7 % (38.7-73.9); Platelet Count 172 T/CUMM (130-400); Red Blood Count 4.19 MC/CUMM (3.8-5.5); Red Cell Distribution Width 14.7 % (9.3-17.3); White Blood Count 8.1 T/CUMM (4-12)
[2017-09-01 06:57] LABS: Calcium 8.6 MG/DL (8.5-10.1); Osmolality,Calculated 275.7 MOS/KG (273-304); Potassium 4.2 MMOL/L (3.5-5.1)
[2017-09-01 07:01] LABS: Albumin 3.2 G/DL (3.4-5.0); Bilirubin,Total 1.1 MG/DL (0.2-1.0); Calcium 8.4 MG/DL (8.5-10.1); Magnesium 2.1 MG/DL (1.8-2.4); Osmolality,Calculated 274.7 MOS/KG (273-304); Potassium 4.6 MMOL/L (3.5-5.1)
[2017-09-01] MEDS ORDERED: NITROGLYCERIN SL 0.4 MG TABLET SL PRN (08:51)
[2017-09-01] MEDS ORDERED: clonazePAM 0.5 MG TABLET PO PRN (08:51)
[2017-09-01] MEDS ORDERED: ASPIRIN EC 81 MG TABLET PO SCH (09:00)
[2017-09-01] MEDS ORDERED: PANTOPRAZOLE 40 MG TABLET PO SCH (09:00)
[2017-09-01] MEDS ORDERED: TICAGRELOR 90 MG TABLET PO SCH (09:00)
[2017-09-01] MEDS: PANTOPRAZOLE 40 MG TABLET PO SCH (09:01)
[2017-09-01] MEDS: METOPROLOL SUCCINATE XL 50 MG TABLET PO SCH (09:01)
[2017-09-01] MEDS: LISINOPRIL 20 MG TABLET PO SCH (09:01)
[2017-09-01 11:42] VITALS: BP 129/86
== END 2017-09-01 12:05 | disposition home or self-care (01) ==
LOC: EDUNIT# → EDBD → N.ED 07:57 → N.EDINP 07:57 → SUATTDRO 12:46 → N.EDINP 15:21 → N.3E 15:29
PROVIDERS: ADMIT Internal Medicine; ATTEND Hospitalist
PROC: CLCCHCL (ICD-10-PCS; 2017-08-31 07:45)

== ENCOUNTER 2018-10-15 14:27 | Observation (INO) ==
[2018-10-15 15:29] LABS: Basophils # 0.1 10*3/uL (0.0-0.2); Basophils % 0.8 % (0.0-0.8); Eosinophils # 0.4 10*3/uL (0.0-0.87); Eosinophils % 3.8 % (0.00-10.9); Hematocrit 44.6 VOL% (42.0-52.0); Hemoglobin 14.5 GM/DL (14.0-18.0); Immature Granulocytes % 0.2 %; Immature Granulocytes Absolute 0.02 #; Lymphocytes # 3.2 10*3/uL (1.4-4.0); Lymphocytes % 31.1 % (21.2-54.2); Mean Corpuscular HGB Conc 32.5 GM/DL (32-36); Mean Corpuscular Hemoglobin 31 PG (27-34); Mean Corpuscular Volume 95.1 FL (87-102); Mean Platelet Volume 9.8 FL (9.6-12.0); Monocytes # 0.7 10*3/uL (0.11-0.8); Monocytes % 6.6 % (1.7-12.7); Neutrophils # 5.9 10*3/uL (1.4-7.4); Neutrophils % 57.5 % (38.7-73.9); Platelet Count 230 T/CUMM (130-400); Red Blood Count 4.69 MC/CUMM (3.8-5.5); White Blood Count 10.2 T/CUMM (4-12)
[2018-10-15 16:02] LABS: Alanine Aminotransferase 18 U/L (16-61); Albumin 3.4 G/DL (3.4-5.0); Alkaline Phosphatase 113 U/L (45-117); Aspartate Amino Transferase 16 U/L (0-37); Bilirubin,Total < 0.39 MG/DL (0.2-1.0); Blood Urea Nitrogen 14 MG/DL (7-18); Calcium 8.7 MG/DL (8.5-10.1); Glucose 101 MG/DL (74-106); Osmolality,Calculated 277.5 MOS/KG (273-304); Potassium 4.3 MMOL/L (3.5-5.1); Sodium 139 MMOL/L (136-145); Total Protein 7.4 G/DL (6.4-8.3)
[2018-10-15] MEDS ORDERED: ASPIRIN 325 MG TABLET PO STA (16:32)
[2018-10-15] MEDS ORDERED: ENOXAPARIN 100 MG/ML SYRINGE SUBCUT STA (16:32)
[2018-10-15] MEDS ORDERED: ACETAMINOPHEN 325 MG TABLET PO PRN (17:22)
[2018-10-15] MEDS ORDERED: ONDANSETRON 4 MG/2 ML VIAL IV PRN (17:22)
[2018-10-15] MEDS ORDERED: NITROGLYCERIN SL 0.4 MG TABLET SL PRN (17:22)
[2018-10-15] MEDS ORDERED: clonazePAM 0.5 MG TABLET PO PRN (17:24)
[2018-10-15] MEDS ORDERED: ENOXAPARIN 40 MG/0.4 ML SYRINGE SUBCUT SCH (17:30)
[2018-10-15] MEDS ORDERED: SODIUM CHLORIDE 0.45% 1,000 ML IV SCH (17:30)
[2018-10-15] MEDS ORDERED: ASPIRIN EC 325 MG TABLET PO SCH (21:00)
[2018-10-15] MEDS ORDERED: ROSUVASTATIN 20 MG TABLET PO SCH (21:00)
[2018-10-16 05:01] LABS: Risk Ratio 3.39
[2018-10-16 08:54] VITALS: BP 143/89
[2018-10-16] MEDS ORDERED: LISINOPRIL 20 MG TABLET PO SCH (09:00)
[2018-10-16] MEDS ORDERED: ASPIRIN EC 81 MG TABLET PO SCH (09:00)
[2018-10-16] MEDS ORDERED: PANTOPRAZOLE 40 MG TABLET PO SCH (09:00)
[2018-10-16] MEDS ORDERED: METOPROLOL SUCCINATE XL 50 MG TABLET PO SCH (09:00)
[2018-10-16] MEDS ORDERED: ENOXAPARIN 40 MG/0.4 ML SYRINGE SUBCUT SCH (16:30)
== END 2018-10-16 11:00 | disposition home or self-care (01) ==
LOC: N.EDINP 14:27 → N.ED 14:27 → N.4E 19:08
PROVIDERS: ADMIT Hospitalist; ATTEND Hospitalist

== ENCOUNTER 2019-05-23 08:51 | Observation (INO) ==
[2019-05-23] MEDS ORDERED: ASPIRIN 325 MG TABLET PO STA ×2 (09:16→09:18)
[2019-05-23] MEDS ORDERED: NITROGLYCERIN SL 0.4 MG TABLET SL PRN ×2 (09:16→11:48)
[2019-05-23] MEDS ORDERED: NITROGLYCERIN SL 0.4 MG TABLET SL STA (09:18)
[2019-05-23] MEDS ORDERED: ASPIRIN 325 MG TABLET ONE (09:26)
[2019-05-23] MEDS ORDERED: NITROGLYCERIN SL 0.4 MG TABLET SL ONE (09:26)
[2019-05-23 10:22] LABS: Basophils # 0.1 10*3/uL (0.0-0.2); Basophils % 0.8 % (0.0-0.8); Eosinophils # 0.2 10*3/uL (0.0-0.87); Eosinophils % 1.9 % (0.00-10.9); Hematocrit 46.6 VOL% (42.0-52.0); Hemoglobin 15.5 GM/DL (14.0-18.0); Immature Granulocytes % 0.5 %; Immature Granulocytes Absolute 0.04 #; Lymphocytes # 1.7 10*3/uL (1.4-4.0); Lymphocytes % 19.6 % (21.2-54.2); Mean Corpuscular HGB Conc 33.3 GM/DL (32-36); Mean Corpuscular Volume 96.7 FL (87-102); Mean Platelet Volume 10.7 FL (9.6-12.0); Monocytes % 13.6 % (1.7-12.7); Neutrophils % 63.6 % (38.7-73.9); Platelet Count 183 T/CUMM (130-400); Red Blood Count 4.82 MC/CUMM (3.8-5.5); Red Cell Distribution Width 16.3 % (9.3-17.3); White Blood Count 8.7 T/CUMM (4-12)
[2019-05-23 10:28] LABS: PT Patient Result 10.8 SECS (9.6-12.2)
[2019-05-23 10:35] LABS: Bilirubin,Total 2.1 MG/DL (0.2-1.0); Calcium 9.5 MG/DL (8.5-10.1); Osmolality,Calculated 274.8 MOS/KG (273-304); Total Protein 8.3 G/DL (6.4-8.3)
[2019-05-23] MEDS ORDERED: DEXTROSE 50% 25 GM/50 ML VIAL IV PRN (11:48)
[2019-05-23] MEDS ORDERED: ACETAMINOPHEN 325 MG TABLET PO PRN (11:48)
[2019-05-23] MEDS ORDERED: ONDANSETRON 4 MG/2 ML VIAL IV PRN (11:48)
[2019-05-23] MEDS ORDERED: MORPHINE 4 MG/1 ML VIAL IV PRN (11:48)
[2019-05-23] MEDS ORDERED: BISACODYL 5 MG TABLET PO PRN (11:48)
[2019-05-23] MEDS ORDERED: GLUCAGON 1 MG VIAL IM PRN (11:48)
[2019-05-23] MEDS ORDERED: POTASSIUM CHLORIDE 20 MEQ TABLET PO STA (11:51)
[2019-05-23 12:47] LABS: Risk Ratio 2.72; VLDL CHOLESTEROL 22.4 MG/DL
[2019-05-23] MEDS ORDERED: ENOXAPARIN 40 MG/0.4 ML SYRINGE SUBCUT SCH (13:00)
[2019-05-23] MEDS ORDERED: MAGNESIUM SULF RIDER 2 GM in PREMIX 1 EACH IV PRN (13:41)
[2019-05-23] MEDS ORDERED: MAGNESIUM SULF RIDER 4 GM in PREMIX 1 EACH IV PRN (13:41)
[2019-05-23] MEDS ORDERED: POTASSIUM CHLORIDE 20 MEQ TABLET PO PRN ×2 (14:42→14:43)
[2019-05-23] MEDS ORDERED: PANTOPRAZOLE 40 MG TABLET PO SCH (21:00)
[2019-05-23] MEDS ORDERED: ROSUVASTATIN 20 MG TABLET PO SCH (21:00)
[2019-05-23] MEDS ORDERED: clonazePAM 0.5 MG TABLET PO SCH (21:00)
[2019-05-23] MEDS ORDERED: OMEGA 3 ACID ETHYL ESTERS 1 GM CAPSULE PO SCH (21:00)
[2019-05-23] MEDS: NICOTINE 21 MG/24 HR PATCH TRANSDERM SCH (21:15)
[2019-05-23 22:00] LABS: Barbiturates Screen,Urine Negative (Negative); Benzodiazepines Screen,Urine Positive (Negative); Cannabinoid Screen,Urine Negative (Negative); Opiate Screen,Urine Negative (Negative); Phencyclidine Screen,Urine Negative (Negative)
[2019-05-24 05:51] LABS: Basophils # 0.1 10*3/uL (0.0-0.2); Basophils % 0.8 % (0.0-0.8); Eosinophils # 0.3 10*3/uL (0.0-0.87); Eosinophils % 3.4 % (0.00-10.9); Hematocrit 42.4 VOL% (42.0-52.0); Hemoglobin 14.1 GM/DL (14.0-18.0); Immature Granulocytes % 0.3 %; Immature Granulocytes Absolute 0.02 #; Lymphocytes # 2.7 10*3/uL (1.4-4.0); Lymphocytes % 34.5 % (21.2-54.2); Mean Corpuscular HGB Conc 33.3 GM/DL (32-36); Mean Corpuscular Volume 97.7 FL (87-102); Mean Platelet Volume 10.8 FL (9.6-12.0); Monocytes % 12.7 % (1.7-12.7); Neutrophils % 48.3 % (38.7-73.9); Platelet Count 164 T/CUMM (130-400); Red Blood Count 4.34 MC/CUMM (3.8-5.5); Red Cell Distribution Width 16.6 % (9.3-17.3); White Blood Count 7.7 T/CUMM (4-12)
[2019-05-24 06:15] LABS: Calcium 9.2 MG/DL (8.5-10.1); Osmolality,Calculated 281.4 MOS/KG (273-304)
[2019-05-24 07:30] VITALS: BP 118/78
[2019-05-24] MEDS: NICOTINE 21 MG/24 HR PATCH TRANSDERM SCH (08:43)
[2019-05-24] MEDS ORDERED: METOPROLOL SUCCINATE XL 25 MG TABLET PO SCH (09:00)
[2019-05-24] MEDS ORDERED: ASPIRIN EC 325 MG TABLET PO SCH (09:00)
[2019-05-24] MEDS ORDERED: PANTOPRAZOLE 40 MG TABLET PO SCH (09:00)
[2019-05-24] MEDS ORDERED: lisinopriL 5 MG TABLET PO SCH (09:00)
== END 2019-05-24 11:54 | disposition home or self-care (01) ==
LOC: N.ED 08:51 → N.EDINP 08:51 → SUATTDRO 11:48 → N.2W 13:02
PROVIDERS: ADMIT Hospitalist; ATTEND Internal Medicine

== ENCOUNTER 2019-06-23 18:33 | Inpatient (IN) ==
[2019-06-23] MEDS ORDERED: INFLUENZA VIRUS VACCINE 0.5 ML SYRINGE IM ONE (20:34)
[2019-06-23] MEDS ORDERED: ACETAMINOPHEN 325 MG TABLET PO PRN (21:24)
[2019-06-23] MEDS ORDERED: ONDANSETRON 4 MG/2 ML VIAL IV PRN (21:24)
[2019-06-23] MEDS ORDERED: NICOTINE 21 MG/24 HR PATCH TRANSDERM PRN (21:24)
[2019-06-23] MEDS: LORazepam 2 MG/1 ML VIAL IV PRN (22:44)
[2019-06-23] MEDS: SODIUM CHLORIDE 0.9% 1,000 ML IV SCH (22:50)
[2019-06-24] MEDS: LORazepam 2 MG/1 ML VIAL IV PRN ×2 (06:18→19:37)
[2019-06-24] MEDS: MULTIVITAMIN (CENTRUM) TABLET PO SCH (08:14)
[2019-06-24] MEDS: FOLIC ACID 1 MG TABLET PO SCH (08:14)
[2019-06-24] MEDS: SODIUM CHLORIDE 0.9% 1,000 ML IV SCH ×2 (08:15→19:16)
[2019-06-24] MEDS: chlordiazePOXIDE 25 MG CAPSULE PO SCH ×3 (10:00→22:09)
[2019-06-25] MEDS: chlordiazePOXIDE 25 MG CAPSULE PO SCH ×3 (04:20→18:07)
[2019-06-25] MEDS: SODIUM CHLORIDE 0.9% 1,000 ML IV SCH (05:44)
[2019-06-25] MEDS: FOLIC ACID 1 MG TABLET PO SCH (08:12)
[2019-06-25] MEDS: MULTIVITAMIN (CENTRUM) TABLET PO SCH (08:12)
[2019-06-25] MEDS ORDERED: NITROGLYCERIN SL 0.4 MG TABLET SL ONE (19:47)
[2019-06-25] MEDS ORDERED: NITROGLYCERIN SL 0.4 MG TABLET SL PRN (19:51)
[2019-06-25] MEDS: LORazepam 2 MG/1 ML VIAL IV PRN (20:03)
[2019-06-25 20:04] LABS: Basophils # 0.1 10*3/uL (0.0-0.2); Basophils % 0.5 % (0.0-0.8); Eosinophils # 0.1 10*3/uL (0.0-0.87); Eosinophils % 1.3 % (0.00-10.9); Hematocrit 44.3 VOL% (42.0-52.0); Hemoglobin 15.2 GM/DL (14.0-18.0); Immature Granulocytes % 0.4 %; Immature Granulocytes Absolute 0.04 #; Lymphocytes # 1.5 10*3/uL (1.4-4.0); Mean Corpuscular HGB Conc 34.3 GM/DL (32-36); Mean Corpuscular Volume 95.3 FL (87-102); Mean Platelet Volume 9.9 FL (9.6-12.0); Monocytes % 7.8 % (1.7-12.7); Platelet Count 175 T/CUMM (130-400); Red Blood Count 4.65 MC/CUMM (3.8-5.5); Red Cell Distribution Width 14.9 % (9.3-17.3); White Blood Count 9.4 T/CUMM (4-12)
[2019-06-25 20:27] LABS: Albumin 3.4 G/DL (3.4-5.0); Bilirubin,Total 0.7 MG/DL (0.2-1.0); Calcium 8.6 MG/DL (8.5-10.1); Osmolality,Calculated 270.1 MOS/KG (273-304); Total Protein 7.1 G/DL (6.4-8.3)
[2019-06-25] MEDS ORDERED: POTASSIUM CHLORIDE 20 MEQ TABLET PO ONE (20:58)
[2019-06-26] MEDS: LORazepam 2 MG/1 ML VIAL IV PRN (01:00)
[2019-06-26] MEDS: chlordiazePOXIDE 25 MG CAPSULE PO SCH ×2 (01:02→09:05)
[2019-06-26 04:21] LABS: Calcium 8.2 MG/DL (8.5-10.1); Osmolality,Calculated 275.5 MOS/KG (273-304)
[2019-06-26 08:15] VITALS: BP 158/93
[2019-06-26] MEDS ORDERED: POTASSIUM CHLORIDE 20 MEQ TABLET PO ONE (08:15)
[2019-06-26] MEDS ORDERED: ISOSORBIDE MONONITRATE 30 MG TABLET PO SCH (09:00)
[2019-06-26] MEDS ORDERED: ASPIRIN EC 81 MG TABLET PO SCH (09:00)
[2019-06-26] MEDS ORDERED: ROSUVASTATIN 20 MG TABLET PO SCH (09:00)
[2019-06-26] MEDS: FOLIC ACID 1 MG TABLET PO SCH (09:05)
[2019-06-26] MEDS: MULTIVITAMIN (CENTRUM) TABLET PO SCH (09:06)
== END 2019-06-26 10:42 | disposition home or self-care (01) | DRG 897 ==
LOC: N.4E 19:59 → INTOOBSV 19:59 → OBSVTOIN 21:24 → INTOOBSV 21:24 → SUATTDRO 21:24
PROVIDERS: ADMIT Internal Medicine Geriatric Medicine; ATTEND Internal Medicine

== ENCOUNTER 2021-02-07 08:39 | Observation (INO) ==
[2021-02-07 09:02] LABS: Basophils % 0.5 % (0.0-0.8); Eosinophils # 0.4 10*3/uL (0.0-0.87); Eosinophils % 4.7 % (0.00-10.9); Hematocrit 47.1 VOL% (42.0-52.0); Hemoglobin 15.7 GM/DL (14.0-18.0); Immature Granulocytes % 0.4 %; Immature Granulocytes Absolute 0.03 #; Lymphocytes # 2.2 10*3/uL (1.4-4.0); Lymphocytes % 29.7 % (21.2-54.2); Mean Corpuscular HGB Conc 33.3 GM/DL (32-36); Mean Corpuscular Volume 94.6 FL (87-102); Mean Platelet Volume 9.9 FL (9.6-12.0); Monocytes % 5.9 % (1.7-12.7); Neutrophils % 58.8 % (38.7-73.9); Platelet Count 164 T/CUMM (130-400); Red Blood Count 4.98 MC/CUMM (3.8-5.5); Red Cell Distribution Width 14.3 % (9.3-17.3); White Blood Count 7.4 T/CUMM (4-12)
[2021-02-07] MEDS ORDERED: ENOXAPARIN 100 MG/ML SYRINGE SUBCUT STA (09:13)
[2021-02-07] MEDS ORDERED: NITROGLYCERIN SL 0.4 MG TABLET SL PRN (09:13)
[2021-02-07] MEDS ORDERED: ASPIRIN 325 MG TABLET PO STA (09:13)
[2021-02-07] MEDS ORDERED: ONDANSETRON 4 MG/2 ML VIAL IV STA (09:13)
[2021-02-07] MEDS ORDERED: NITROGLYCERIN SL 0.4 MG TABLET SL ONE (09:20)
[2021-02-07 09:33] LABS: Albumin 3.5 G/DL (3.4-5.0); Bilirubin,Total 1.1 MG/DL (0.20-1.00); Calcium 8.7 MG/DL (8.5-10.1); Osmolality,Calculated 271.1 MOS/KG (273-304); Potassium 4.2 MMOL/L (3.5-5.1); Total Protein 7.6 G/DL (6.4-8.2)
[2021-02-07] MEDS ORDERED: DEXTROSE 50% 25 GM/50 ML VIAL IV PRN (14:08)
[2021-02-07] MEDS ORDERED: ONDANSETRON 4 MG/2 ML VIAL IV PRN (14:08)
[2021-02-07] MEDS ORDERED: GLUCAGON 1 MG VIAL IM PRN (14:08)
[2021-02-07] MEDS ORDERED: MORPHINE 2 MG/1 ML SYRINGE IV PRN (14:08)
[2021-02-07] MEDS ORDERED: ALBUTEROL/IPRATROPIUM 3 ML NEB RESP TX PRN (14:08)
[2021-02-07] MEDS ORDERED: hydrALAZINE 20 MG/1 ML VIAL IV PRN (14:08)
[2021-02-07] MEDS ORDERED: LORazepam 2 MG/1 ML VIAL IV PRN (14:22)
[2021-02-07] MEDS ORDERED: chlordiazePOXIDE 25 MG CAPSULE PO PRN (14:22)
[2021-02-07 14:58] LABS: Barbiturates Screen,Urine Negative (Negative); Benzodiazepines Screen,Urine Positive (Negative); Cannabinoid Screen,Urine Negative (Negative); Opiate Screen,Urine Negative (Negative); Phencyclidine Screen,Urine Negative (Negative)
[2021-02-07] MEDS ORDERED: ENOXAPARIN 80 MG/0.8 ML SYRINGE SUBCUT SCH (21:00)
[2021-02-08 04:33] LABS: Basophils # 0.1 10*3/uL (0.0-0.2); Basophils % 0.7 % (0.0-0.8); Eosinophils # 0.4 10*3/uL (0.0-0.87); Hematocrit 43.1 VOL% (42.0-52.0); Hemoglobin 14.6 GM/DL (14.0-18.0); Immature Granulocytes % 0.3 %; Immature Granulocytes Absolute 0.02 #; Lymphocytes # 2.8 10*3/uL (1.4-4.0); Lymphocytes % 39.2 % (21.2-54.2); Mean Corpuscular HGB Conc 33.9 GM/DL (32-36); Mean Corpuscular Volume 94.3 FL (87-102); Mean Platelet Volume 10.6 FL (9.6-12.0); Monocytes % 5.8 % (1.7-12.7); Platelet Count 129 T/CUMM (130-400); Red Blood Count 4.57 MC/CUMM (3.8-5.5); Red Cell Distribution Width 13.9 % (9.3-17.3); White Blood Count 7.2 T/CUMM (4-12)
[2021-02-08 04:57] LABS: Albumin 3.2 G/DL (3.4-5.0); Bilirubin,Total 1.4 MG/DL (0.20-1.00); Calcium 8.8 MG/DL (8.5-10.1); Osmolality,Calculated 273.8 MOS/KG (273-304); Potassium 3.7 MMOL/L (3.5-5.1); Risk Ratio 2.98; Total Protein 6.9 G/DL (6.4-8.2); VLDL Cholesterol 24.6 MG/DL
[2021-02-08 05:42] LABS: Eosinophils 6 % (0-10); Lymphocytes 40 % (20-55); Segmented Neutrophils 54 % (50-85); Total Cells Counted 100
[2021-02-08] MEDS ORDERED: MAGNESIUM SULF RIDER 2 GM/50 ML PREMIX IV ONE (07:05)
[2021-02-08] MEDS ORDERED: FOLIC ACID 1 MG TABLET PO SCH (09:00)
[2021-02-08] MEDS ORDERED: THIAMINE 100 MG TABLET PO SCH (09:00)
[2021-02-08] MEDS ORDERED: MULTIVITAMIN (CENTRUM) TABLET PO SCH (09:00)
[2021-02-08] MEDS ORDERED: PANTOPRAZOLE 40 MG TABLET PO SCH (09:00)
[2021-02-08] MEDS ORDERED: NICOTINE 21 MG/24 HR PATCH TRANSDERM SCH (09:00)
[2021-02-08 09:09] VITALS: BP 170/89
[2021-02-08 15:23] LABS: Folate 4.53 NG/ML (5.38-24.0)
[2021-02-08] MEDS ORDERED: ROSUVASTATIN 20 MG TABLET PO SCH (21:00)
== END 2021-02-08 09:17 | disposition home or self-care (01) ==
LOC: N.EDINP 08:39 → N.ED 08:39 → N.EDINP 02-08 09:16
PROVIDERS: ADMIT Internal Medicine; ATTEND Internal Medicine

== ENCOUNTER 2021-07-11 09:24 | Inpatient (IN) ==
[2021-07-11 10:11] LABS: Basophils % 0.6 % (0.0-0.8); Eosinophils # 0.1 10*3/uL (0.0-0.87); Eosinophils % 1.6 % (0.00-10.9); Hematocrit 43.2 VOL% (42.0-52.0); Hemoglobin 14.5 GM/DL (14.0-18.0); Immature Granulocytes % 0.4 %; Immature Granulocytes Absolute 0.03 #; Lymphocytes # 1.5 10*3/uL (1.4-4.0); Lymphocytes % 21.1 % (21.2-54.2); Mean Corpuscular HGB Conc 33.6 GM/DL (32-36); Mean Corpuscular Volume 92.9 FL (87-102); Monocytes % 5.2 % (1.7-12.7); Neutrophils % 71.1 % (38.7-73.9); Platelet Count 138 T/CUMM (130-400); Red Blood Count 4.65 MC/CUMM (3.8-5.5); Red Cell Distribution Width 13.8 % (9.3-17.3); White Blood Count 7.1 T/CUMM (4-12)
[2021-07-11 10:33] LABS: Albumin 3.4 G/DL (3.4-5.0); Bilirubin,Total 1.5 MG/DL (0.20-1.00); Calcium 8.5 MG/DL (8.5-10.1); Osmolality,Calculated 280.5 MOS/KG (273-304); Potassium 3.6 MMOL/L (3.5-5.1); Total Protein 6.6 G/DL (6.4-8.2)
[2021-07-11] MEDS ORDERED: ONDANSETRON 4 MG/2 ML VIAL IV STA (11:07)
[2021-07-11] MEDS ORDERED: ONDANSETRON 4 MG/2 ML VIAL ONE (11:08)
[2021-07-11] MEDS ORDERED: MORPHINE 2 MG/1 ML SYRINGE IV STA (12:56)
[2021-07-11] MEDS ORDERED: NITROGLYCERIN SL 0.4 MG TABLET SL STA (12:56)
[2021-07-11] MEDS ORDERED: NICOTINE 21 MG/24 HR PATCH TRANSDERM PRN (13:14)
[2021-07-11] MEDS ORDERED: GLUCAGON 1 MG VIAL IM PRN (13:14)
[2021-07-11] MEDS ORDERED: NITROGLYCERIN SL 0.4 MG TABLET SL PRN (13:15)
[2021-07-11] MEDS ORDERED: DEXTROSE 50% 25 GM/50 ML SYRINGE IV PRN (13:18)
[2021-07-11] MEDS: ONDANSETRON 4 MG/2 ML VIAL IV PRN ×2 (13:40→17:19)
[2021-07-11] MEDS: ENOXAPARIN 40 MG/0.4 ML SYRINGE SUBCUT SCH (14:56)
[2021-07-11] MEDS: clonazePAM 0.5 MG TABLET PO PRN (17:20)
[2021-07-11] MEDS: ASPIRIN EC 325 MG TABLET PO SCH (20:16)
[2021-07-11] MEDS: lisinopriL 10 MG TABLET PO SCH (20:17)
[2021-07-11] MEDS: BRIMONIDINE 0.2% OPH SOLN 5 ML BOTTLE BOTH EYES SCH (20:17)
[2021-07-11] MEDS: METOPROLOL SUCCINATE XL 50 MG TABLET PO SCH (20:17)
[2021-07-11] MEDS: DORZOLAMIDE/TIMOLOL OPH SOLN 10 ML BOTTLE BOTH EYES SCH (20:17)
[2021-07-11] MEDS: LATANOPROST 0.005% OPH SOLN 2.5 ML BOTTLE BOTH EYES SCH (20:20)
[2021-07-12] MEDS: ACETAMINOPHEN 325 MG TABLET PO PRN (04:42)
[2021-07-12 05:46] LABS: Basophils % 0.6 % (0.0-0.8); Eosinophils # 0.3 10*3/uL (0.0-0.87); Eosinophils % 4.3 % (0.00-10.9); Hematocrit 40.9 VOL% (42.0-52.0); Hemoglobin 13.6 GM/DL (14.0-18.0); Immature Granulocytes % 0.3 %; Immature Granulocytes Absolute 0.02 #; Lymphocytes # 2.5 10*3/uL (1.4-4.0); Lymphocytes % 36.1 % (21.2-54.2); Mean Corpuscular HGB Conc 33.3 GM/DL (32-36); Mean Corpuscular Volume 94.2 FL (87-102); Mean Platelet Volume 10.4 FL (9.6-12.0); Monocytes % 6.9 % (1.7-12.7); Neutrophils % 51.8 % (38.7-73.9); Platelet Count 102 T/CUMM (130-400); Red Blood Count 4.34 MC/CUMM (3.8-5.5); Red Cell Distribution Width 13.4 % (9.3-17.3); White Blood Count 6.8 T/CUMM (4-12)
[2021-07-12 06:18] LABS: Albumin 2.9 G/DL (3.4-5.0); Bilirubin,Total 1.9 MG/DL (0.20-1.00); Calcium 8.3 MG/DL (8.5-10.1); Osmolality,Calculated 278.4 MOS/KG (273-304); Potassium 3.5 MMOL/L (3.5-5.1); Total Protein 6.4 G/DL (6.4-8.2)
[2021-07-12] MEDS: DORZOLAMIDE/TIMOLOL OPH SOLN 10 ML BOTTLE BOTH EYES SCH ×2 (08:13→20:40)
[2021-07-12] MEDS: BRIMONIDINE 0.2% OPH SOLN 5 ML BOTTLE BOTH EYES SCH ×2 (08:13→20:40)
[2021-07-12] MEDS: PANTOPRAZOLE 40 MG TABLET PO SCH (08:14)
[2021-07-12] MEDS ORDERED: REGADENOSON 0.4 MG/5 ML SYRINGE IV ONE (08:26)
[2021-07-12] MEDS ORDERED: ALUM/MAG/SIMETH/LIDO VISC 1:1 30 ML BOTTLE PO ONE (10:53)
[2021-07-12] MEDS ORDERED: SODIUM CHLORIDE 0.9% 1,000 ML IV SCH (12:00)
[2021-07-12] MEDS: ONDANSETRON 4 MG/2 ML VIAL IV PRN (12:51)
[2021-07-12] MEDS: ENOXAPARIN 40 MG/0.4 ML SYRINGE SUBCUT SCH (14:46)
[2021-07-12] MEDS: lisinopriL 10 MG TABLET PO SCH (20:39)
[2021-07-12] MEDS: METOPROLOL SUCCINATE XL 50 MG TABLET PO SCH (20:40)
[2021-07-12] MEDS: LATANOPROST 0.005% OPH SOLN 2.5 ML BOTTLE BOTH EYES SCH (20:40)
[2021-07-12] MEDS: ASPIRIN EC 325 MG TABLET PO SCH (20:40)
[2021-07-13 07:37] LABS: Albumin 2.7 G/DL (3.4-5.0); Calcium 8.2 MG/DL (8.5-10.1); Osmolality,Calculated 281.3 MOS/KG (273-304); Potassium 3.5 MMOL/L (3.5-5.1)
[2021-07-13] MEDS ORDERED: MAGNESIUM SULF RIDER 2 GM/50 ML PREMIX IV PRN (09:38)
[2021-07-13] MEDS ORDERED: POTASSIUM CHLORIDE RIDER 10 MEQ/100 ML PREMIX IV PRN (09:38)
[2021-07-13] MEDS ORDERED: DICLOFENAC 1% GEL 100 GM TUBE TOP PRN (09:50)
[2021-07-13] MEDS: POTASSIUM CHLORIDE 20 MEQ TABLET PO SCH (10:29)
[2021-07-13] MEDS: PANTOPRAZOLE 40 MG TABLET PO SCH (10:30)
[2021-07-13] MEDS: BRIMONIDINE 0.2% OPH SOLN 5 ML BOTTLE BOTH EYES SCH ×2 (10:31→22:45)
[2021-07-13] MEDS: DORZOLAMIDE/TIMOLOL OPH SOLN 10 ML BOTTLE BOTH EYES SCH ×2 (10:32→22:45)
[2021-07-13] MEDS: FOLIC ACID 1 MG TABLET PO SCH (10:35)
[2021-07-13] MEDS: THIAMINE 100 MG TABLET PO SCH (10:35)
[2021-07-13] MEDS: MULTIVITAMIN (BEROCCA) TABLET PO SCH (10:35)
[2021-07-13] MEDS: SODIUM CHLORIDE 0.9% 1,000 ML IV SCH ×2 (10:36→23:37)
[2021-07-13] MEDS: ENOXAPARIN 40 MG/0.4 ML SYRINGE SUBCUT SCH (14:53)
[2021-07-13] MEDS: clonazePAM 0.5 MG TABLET PO PRN (14:57)
[2021-07-13] MEDS: METOPROLOL SUCCINATE XL 50 MG TABLET PO SCH (20:47)
[2021-07-13] MEDS: lisinopriL 10 MG TABLET PO SCH (20:47)
[2021-07-13] MEDS: ACETAMINOPHEN 325 MG TABLET PO PRN (20:47)
[2021-07-13] MEDS: ASPIRIN EC 325 MG TABLET PO SCH (20:53)
[2021-07-13] MEDS: LATANOPROST 0.005% OPH SOLN 2.5 ML BOTTLE BOTH EYES SCH (22:45)
[2021-07-14] MEDS: LORazepam 2 MG/1 ML VIAL IV PRN ×2 (00:26→11:57)
[2021-07-14 05:47] LABS: Basophils % 0.4 % (0.0-0.8); Eosinophils # 0.4 10*3/uL (0.0-0.87); Eosinophils % 5.7 % (0.00-10.9); Hematocrit 37.4 VOL% (42.0-52.0); Hemoglobin 12.8 GM/DL (14.0-18.0); Immature Granulocytes % 0.6 %; Immature Granulocytes Absolute 0.04 #; Lymphocytes # 2.6 10*3/uL (1.4-4.0); Lymphocytes % 35.8 % (21.2-54.2); Mean Corpuscular HGB Conc 34.2 GM/DL (32-36); Mean Corpuscular Volume 93.3 FL (87-102); Mean Platelet Volume 10.8 FL (9.6-12.0); Monocytes % 6.4 % (1.7-12.7); Neutrophils % 51.1 % (38.7-73.9); Red Blood Count 4.01 MC/CUMM (3.8-5.5); Red Cell Distribution Width 13.2 % (9.3-17.3); White Blood Count 7.2 T/CUMM (4-12)
[2021-07-14 05:48] LABS: Platelet Count 78 T/CUMM (130-400)
[2021-07-14 05:56] LABS: Calcium 7.8 MG/DL (8.5-10.1); Osmolality,Calculated 276.5 MOS/KG (273-304); Potassium 3.3 MMOL/L (3.5-5.1); Risk Ratio 3.72; VLDL Cholesterol 23.4 MG/DL
[2021-07-14] MEDS ORDERED: SODIUM CHLORIDE 0.45% 1,000 ML IV SCH (06:00)
[2021-07-14 06:08] LABS: Eosinophils 5 % (0-10); Hypochromasia 1+; Lymphocytes 32 % (20-55); Microcytosis 1+; Platelet Estimate Decreased; Segmented Neutrophils 60 % (50-85); Total Cells Counted 100
[2021-07-14] MEDS ORDERED: diphenhydrAMINE CAP 50 MG CAPSULE PO ONE (07:30)
[2021-07-14] MEDS ORDERED: DIAZEPAM 5 MG TABLET PO ONE (07:30)
[2021-07-14] MEDS ORDERED: NITROGLYCERIN DRIP 50 MG/250 ML BOTTLE IV ONE (08:12)
[2021-07-14] MEDS ORDERED: VERAPAMIL 5 MG/2 ML VIAL ONE (08:12)
[2021-07-14] MEDS ORDERED: fentaNYL 100 MCG/2 ML VIAL ONE (08:12)
[2021-07-14] MEDS ORDERED: MIDAZOLAM 2 MG/2 ML VIAL ONE ×2 (08:12→08:36)
[2021-07-14] MEDS ORDERED: LIDOCAINE 1% 20 ML VIAL ONE (08:22)
[2021-07-14] MEDS ORDERED: PROMETHAZINE 25 MG/1 ML VIAL ONE (08:36)
[2021-07-14] MEDS ORDERED: HYDROmorphone 2 MG/1 ML VIAL ONE (08:39)
[2021-07-14] MEDS ORDERED: ENOXAPARIN 30 MG/0.3 ML SYRINGE ONE (08:41)
[2021-07-14] MEDS ORDERED: diphenhydrAMINE 50 MG/1 ML VIAL ONE (08:44)
[2021-07-14] MEDS: BRIMONIDINE 0.2% OPH SOLN 5 ML BOTTLE BOTH EYES SCH (11:57)
[2021-07-14] MEDS: DORZOLAMIDE/TIMOLOL OPH SOLN 10 ML BOTTLE BOTH EYES SCH (11:58)
[2021-07-14] MEDS: FOLIC ACID 1 MG TABLET PO SCH (13:32)
[2021-07-14] MEDS: POTASSIUM CHLORIDE 20 MEQ TABLET PO SCH (13:32)
[2021-07-14] MEDS: THIAMINE 100 MG TABLET PO SCH (13:32)
[2021-07-14] MEDS: PANTOPRAZOLE 40 MG TABLET PO SCH (13:32)
[2021-07-14] MEDS: MULTIVITAMIN (BEROCCA) TABLET PO SCH (13:32)
[2021-07-14 15:19] VITALS: BP 109/72
[2021-07-14] MEDS ORDERED: ROSUVASTATIN 20 MG TABLET PO SCH (21:00)
== END 2021-07-14 16:10 | disposition home or self-care (01) | DRG 287 ==
LOC: N.EDINP 09:24 → N.ED 09:24 → N.TELES 14:46 → SUATTDRO 07-13 09:48
PROVIDERS: ADMIT Internal Medicine; ATTEND Internal Medicine
PROC: CLCCHCL (ICD-10-PCS; 2021-07-14 09:15)